=== PATIENT | female | born 1990 | race American Indian/Alaskan Native ===

== ENCOUNTER 2017-06-09 19:16 | Inpatient (IN) | payer OTHER ==
[2017-06-09 21:44] LABS: Basophils % (Auto) 0.7 % (0.0-1.8); Eosinophils % (Auto) 0.4 % (0.0-4.3); Hemoglobin 13.5 gm/dl (10.1-14.3); Mean Corpuscular HGB Conc 32 % (30-34); Mean Corpuscular Hemoglobin 26 pg (28-32); Mean Corpuscular Volume 81 fl (79-97); Platelet Count 315 K/mm3 (140-440); Red Blood Count 5.19 M/mm3 (3.65-5.03); Red Cell Distribution Width 13.9 % (13.2-15.2); White Blood Count 9.9 K/mm3 (4.5-11.0)
[2017-06-09 22:00] LABS: Alanine Aminotransferase 13 units/L (7-56); Albumin 3.9 g/dL (3.9-5); Albumin/Globulin Ratio 1.1 %; Alkaline Phosphatase 57 units/L (35-129); Anion Gap 21 mmol/L; BUN/Creatinine Ratio 16.66; Blood Urea Nitrogen 10 mg/dL (7-17); Calcium 9.1 mg/dL (8.4-10.2); Carbon Dioxide 22 mmol/L (22-30); Chloride 99.8 mmol/L (98-107); Glucose 194 mg/dL (65-100); Lipase 20 units/L (13-60); Sodium 139 mmol/L (137-145); Total Protein 7.4 g/dL (6.3-8.2)
[2017-06-10] MEDS ORDERED: ZOFRAN ODT ONE (00:27)
[2017-06-10] MEDS ORDERED: ZOFRAN IV ONE ×2 (03:20→06:33)
[2017-06-10 03:57] LABS: Bacteria,Urine 4+ /HPF (Negative); Bilirubin,Urine NEG (Negative); Blood,Urine LG (Negative); Ketones,Urine 80 mg/dL (Negative); Leukocyte Esterase,Urine TR (Negative); Mucus,Urine 3+ /HPF; Nitrite,Urine POS (Negative); Urobilinogen,Urine < 2.0 mg/dL (<2.0)
[2017-06-10 03:58] LABS: RBC,Urine > 182.0 /HPF (0.0-6.0)
[2017-06-10] MEDS ORDERED: REGLAN IV ONE (05:44)
[2017-06-10] MEDS ORDERED: REGLAN ONE (05:47)
[2017-06-10] MEDS ORDERED: NACL 0.9% 1000 ML 1,000 ML IV ONE (06:33)
[2017-06-10] MEDS ORDERED: PEPCID IV ONE (06:33)
--- NOTE | 2017-06-10 06:38 | Emergency Department Report ---
HPI - General Chief Complaint: Abdominal Pain Time Seen by Provider: 06/10/17 06:10 - HPI HPI: This is a 26-year-old [place]cu[place] female who presents to the emergency department, dropped off by a friend, with complaint of a 3 day history of nausea, vomiting and some generalized abdominal discomfort. She went to [facility] last night and says she was given Zofran, Pepcid and discharged home. She continues to have nausea and vomiting and has been having some blood in the vomit. She has a past medical history of diabetes on Humulin and Humalog as well as asthma. She does not have a primary care physician. No recent travel or sick contacts at home. The patient was found to have some blood in the urine on urinalysis and says that she may be starting her menstrual cycle. She denies any fever, dysuria, vaginal discharge, chest pain, shortness of breath. ED Past Medical Hx - Past Medical History Previous Medical History?: Yes Hx Diabetes: Yes Hx Asthma: Yes Additional medical history: states was seen at [place] yesterday and told she had a Gastro intestinal bleed. Sent home with prescriptions and follow up with GI. - Social History Smoking Status: Never Smoker - Medications Home Medications: Home Medications Medication Instructions Recorded Confirmed Last Taken Type Insulin Lispro [Humalog 100 0 units SQ AC 06/10/17 06/10/17 06/06/17 History UNITS/ML Kwikpen] ED Review of Systems ROS: Stated complaint: ABD PAIN Other details as noted in HPI Comment: All other systems reviewed and negative Constitutional: denies: chills, fever Eyes: denies: eye pain, eye discharge, vision change ENT: denies: ear pain, throat pain Respiratory: denies: cough, shortness of breath, wheezing Cardiovascular: denies: chest pain, palpitations Gastrointestinal: abdominal pain, nausea, vomiting, hematemesis. denies: melena Genitourinary: denies: urgency, dysuria, discharge Musculoskeletal: denies: back pain, joint swelling, arthralgia Skin: denies: rash, lesions Neurological: denies: headache, weakness, paresthesias Physical Exam - Physical Exam Vital Signs: Vital Signs 06/09/17 06/09/17 06/10/17 20:35 20:46 03:55 Temperature 97.9 F Pulse Rate 80 83 Respiratory 18 20 22 Rate Blood Pressure 141/87 141/87 O2 Sat by Pulse 100 99 98 Oximetry 06/10/17 06/10/17 06/10/17 04:49 05:00 05:15 Temperature Pulse Rate 86 81 90 Respiratory 18 11 L 35 H Rate Blood Pressure 151/85 145/89 O2 Sat by Pulse Oximetry Physical Exam: GENERAL: The patient is well-developed well-nourished. HENT: Normocephalic. Atraumatic. Patient has moist mucous membranes. EYES: Extraocular motions are intact. Pupils equal reactive to light bilaterally. NECK: Supple. Trachea is midline. CHEST/LUNGS: Clear to auscultation. There is no respiratory distress noted. HEART/CARDIOVASCULAR: Regular. There is no tachycardia. There is no gallop rub or murmur. ABDOMEN: Abdomen is soft. Mild generalized tenderness to palpation. No guarding or rebound tenderness. No peritoneal signs. Obese habitus. Patient has normal bowel sounds. There is no abdominal distention. SKIN: Skin is warm and dry. NEURO: The patient is awake, alert, and oriented. The patient is cooperative. The patient has no focal neurologic deficits. The patient has normal speech. MUSCULOSKELETAL: There is no tenderness or deformity. There is no limitation range of motion. There is no evidence of acute injury. ED Course Vital Signs 06/09/17 06/09/17 06/10/17 20:35 20:46 03:55 Temperature 97.9 F Pulse Rate 80 83 Respiratory 18 20 22 Rate Blood Pressure 141/87 141/87 O2 Sat by Pulse 100 99 98 Oximetry 06/10/17 06/10/17 06/10/17 04:49 05:00 05:15 Temperature Pulse Rate 86 81 90 Respiratory 18 11 L 35 H Rate Blood Pressure 151/85 145/89 O2 Sat by Pulse Oximetry ED Medical Decision Making - Lab Data Result diagrams: 06/09/17 21:06 06/09/17 21:06 - Radiology Data Radiology results: image reviewed interpreted by me: Abdominal x-ray shows nonspecific nonobstructive bowel gas. - Medical Decision Making 26-year-old female presents with generalized abdominal discomfort, nausea, vomiting. Labs are mostly unremarkable except for does show 80 ketones in the urine showing dehydration. There is some hyperglycemia but it is reasonable and certainly does not appear consistent with diabetic ketoacidosis. She was seen at another emergency department last night and has been using antiemetics. Since being in [facility] she has received 8 mg of Zofran, 10 mg of Reglan, IV fluid resuscitation and continues to have nausea, vomiting with some coffee-ground emesis. Patient was given a PPI. Vital signs stable. She'll be admitted to the hospital for further evaluation and treatment and was accepted by the hospitalist service. - Differential Diagnosis gastroenteritis, diabetic gastroparesis, ulcer, Halle-Biswas tear Critical Care Time: No Critical care attestation.: If time is entered above; I have spent that time in minutes in the direct care of this critically ill patient, excluding procedure time. ED Disposition Clinical Impression: Coffee ground emesis, Dehydration Intractable nausea and vomiting Qualifiers: Vomiting type: unspecified Qualified Code(s): R11.2 - Nausea with vomiting, unspecified Abdominal pain Qualifiers: Abdominal location: generalized Qualified Code(s): R10.84 - Generalized abdominal pain Disposition: 09 OP ADMIT IP TO THIS HOSP Is pt being admited?: Yes Condition: Stable Time of Disposition: 13:45
--- NOTE | 2017-06-10 07:13 | XRay Report ---
ABDOMEN, 2 views: History: Abdominal pain. There is no evidence of free air beneath the diaphragms. The gas pattern within the abdomen is unremarkable. There is no evidence of bowel dilatation, significant air-fluid levels, or pathologic calcifications. Organ shadows are unremarkable. IMPRESSION: Unremarkable abdomen.
[2017-06-10] MEDS ORDERED: MORPHINE IV ONE (08:18)
[2017-06-10] MEDS ORDERED: PHENERGAN PR PRN (10:08)
[2017-06-10] MEDS ORDERED: TYLENOL PO PRN (10:08)
[2017-06-10] MEDS ORDERED: ZOFRAN IM PRN (10:11)
[2017-06-10] MEDS ORDERED: D50W (25GM) Syringe IV PRN (10:13)
--- NOTE | 2017-06-10 10:19 | History and Physical Report ---
History of Present Illness Date of examination: 06/10/17 Date of admission: 06/10/2017 Chief complaint: Abdominal pain, nausea and vomiting History of present illness: Patient is a 26-year-old Bangladeshi female with past medical history asthma and insulin diabetes mellitus type 1, who presents to the emergency department, with complaint of a 3 day history of nausea, vomiting and sharp, epigastric abdominal pain. The abdominal pain has been gradually worsening over the past 3- 4days. Since yesterday she has had severe nausea and has had multiple episodes of bilious vomiting despite not having taken anything by mouth in over 3 days. Also this morning had a coffee ground emesis once. The pain has not changed or worsened acutely. The pain is located in the epigastric region and mid-abdomen. It does not radiate. The pain is relatively constant throughout the day and night but does vary in severity. She rates the pain as 8/10 at its worst.She describes the pain as a sharp, burning pain.The pain is not alleviated with rest. The pain aggravated with eating or drinking. She does endorse occasional heartburn, decreased appetite, and fatigue. Patient went to [facility] yesterday and was discharged home with [facility] [place]. Patient stated that she took the medication that had been prescribed, but no improvement of the symptoms. Her last bowel movement was over 2 days ago. She denies any fever , dysuria, vaginal discharge, chest pain, shortness of breath. She denies a recent history of fever, jaundice, pruritis, diarrhea, hemoptysis, melena, or hematochezia. She denies a known history of hemorrhoids, diverticulitis, peptic ulcer disease, gastritis, acid reflux, gall bladder disease or cholelithiasis. Patient reported she has the similar symptoms 3-4month ago but did not seek medical attention.She denies a history of smoking or alcohol consumption. Past History Past Medical History: diabetes (type 1), other (Asthma) Past Surgical History: No surgical history Social history: denies: smoking, alcohol abuse Family history: diabetes, hypertension Medications and Allergies Allergies Allergy/AdvReac Type Severity Reaction Status Date / Time Sulfa (Sulfonamide Allergy Swelling Verified 06/09/17 20:42 Antibiotics) sulfamethoxazole Allergy Swelling Verified 06/09/17 20:42 [From Bactrim] trimethoprim [From Bactrim] Allergy Swelling Verified 06/09/17 20:42 Home Medications Medication Instructions Recorded Confirmed Last Taken Type Insulin Lispro [Humalog 100 0 units SQ AC 06/10/17 06/10/17 06/06/17 History UNITS/ML Kwikpen] Active Meds: Active Medications Acetaminophen (Tylenol) 650 mg PO Q4H PRN PRN Reason: Pain MILD(1-3)/Fever >100.5/PATEL Bisacodyl (Dulcolax) 10 mg GA QDAY PRN PRN Reason: Constipation unrelieved by MOM Dextrose (D50w (25gm) Syringe) 50 ml IV PRN PRN PRN Reason: Hypoglycemia Enoxaparin Sodium (Lovenox) 40 mg SUB-Q QDAY HERI Sodium Chloride (Nacl 0.9% 1000 Ml) 1,000 mls @ 75 mls/hr IV DIRECT HERI Insulin Aspart (Novolog) 0 units SUB-Q AC HERI PRN Reason: Protocol Insulin Aspart (Novolog) 0 units SUB-Q QHS HERI PRN Reason: Protocol Morphine Sulfate (Morphine) 2 mg IV Q4H PRN PRN Reason: Pain, Moderate (4-6) Ondansetron HCl (Zofran) 4 mg IM Q4H PRN PRN Reason: Nausea And Vomiting Pantoprazole Sodium (Protonix) 40 mg IV BID HERI Promethazine HCl (Phenergan) 25 mg GA Q6H PRN PRN Reason: N/V IF NPO AND NO IV ACCESS Review of Systems Constitutional: no weight loss, no weight gain, no fever, no chills, no sweats Ears, nose, mouth and throat: no ear pain, no ear discharge, no tinnitis, no decreased hearing, no nose pain, no nasal congestion Breasts: no change in shape, no swelling, no mass Cardiovascular: no palpitations, no rapid/irregular heart beat, no edema, no syncope, no lightheadedness Respiratory: no excessive sputum, no hemoptysis, no shortness of breath Gastrointestinal: abdominal pain, nausea, vomiting, hematemesis, heartburn, indigestion, belching Genitourinary Female: no dyspareunia, no dysmenorrhea, no pelvic pain, no flank pain, no menorrhagia, no dysuria, no urinary frequency, no urgency, no stress incontinence Menstruation: currently menstrual, no premenarcheal Rectal: no pain, no incontinence Musculoskeletal: no neck stiffness, no neck pain, no shooting arm pain, no arm numbness/tingling Integumentary: no rash, no pruritis, no redness, no sores, no wounds Neurological: no transient paralysis, no paralysis, no weakness, no parathesias , no numbness, no tingling Psychiatric: no memory loss, no change in sleep habits, no sleep disturbances, no insomnia, no hypersomnia, no change in appetite Endocrine: no heat intolerance, no polyphagia, no excessive thirst, no polydipsia, no polyuria Hematologic/Lymphatic: no easy bruising, no easy bleeding Allergic/Immunologic: no urticaria, no allergic rhinitis Exam - Constitutional Vitals: Temp Pulse Resp BP Pulse Ox 97.9 F 80 16 134/76 98 06/09/17 20:46 06/10/17 05:46 06/10/17 08:32 06/10/17 08:45 06/10/17 03:55 General appearance: Present: no acute distress - EENT Eyes: Present: PERRL ENT: hearing intact, clear oral mucosa, dentition normal - Neck Neck: Present: supple, normal ROM - Respiratory Respiratory effort: normal Respiratory: bilateral: CTA - Cardiovascular Rhythm: regular Heart Sounds: Present: S1 & S2 - Extremities Extremities: no ischemia Peripheral Pulses: within normal limits - Abdominal General gastrointestinal: Present: soft Female genitourinary: Present: deferred - Rectal Rectal Exam: deferred - Integumentary Integumentary: Present: clear, warm, dry - Musculoskeletal Musculoskeletal: strength equal bilaterally - Psychiatric Psychiatric: appropriate mood/affect - Neurologic Neurologic: CNII-XII intact - Allied Health Allied health notes reviewed: nursing Results - Labs CBC & Chem 7: 06/09/17 21:06 06/09/17 21:06 Labs: Laboratory Last Values WBC 9.9 K/mm3 (4.5-11.0) 06/09/17 21:06 RBC 5.19 M/mm3 (3.65-5.03) H 06/09/17 21:06 Hgb 13.5 gm/dl (10.1-14.3) 06/09/17 21:06 Hct 42.0 % (30.3-42.9) 06/09/17 21:06 MCV 81 fl (79-97) 06/09/17 21:06 MCH 26 pg (28-32) L 06/09/17 21:06 MCHC 32 % (30-34) 06/09/17 21:06 RDW 13.9 % (13.2-15.2) 06/09/17 21:06 Plt Count 315 K/mm3 (140-440) 06/09/17 21:06 Lymph % (Auto) 20.3 % (13.4-35.0) 06/09/17 21:06 [place] % (Auto) 6.5 % (0.0-7.3) 06/09/17 21:06 Eos % (Auto) 0.4 % (0.0-4.3) 06/09/17 21:06 Baso % (Auto) 0.7 % (0.0-1.8) 06/09/17 21:06 Lymph # 2.0 K/mm3 (1.2-5.4) 06/09/17 21:06 [place] # 0.6 K/mm3 (0.0-0.8) 06/09/17 21:06 Eos # 0.0 K/mm3 (0.0-0.4) 06/09/17 21:06 Baso # 0.1 K/mm3 (0.0-0.1) 06/09/17 21:06 Seg Neutrophils % 72.1 % (40.0-70.0) H 06/09/17 21:06 Seg Neutrophils # 7.1 K/mm3 (1.8-7.7) 06/09/17 21:06 Sodium 139 mmol/L (137-145) 06/09/17 21:06 Potassium 4.0 mmol/L (3.6-5.0) 06/09/17 21:06 Chloride 99.8 mmol/L (98-107) 06/09/17 21:06 Carbon Dioxide 22 mmol/L (22-30) 06/09/17 21:06 Anion Gap 21 mmol/L 06/09/17 21:06 BUN 10 mg/dL (7-17) 06/09/17 21:06 Creatinine 0.6 mg/dL (0.7-1.2) L 06/09/17 21:06 Estimated GFR > 60 ml/min 06/09/17 21:06 BUN/Creatinine Ratio 16.66 % 06/09/17 21:06 Glucose 194 mg/dL (65-100) H 06/09/17 21:06 Calcium 9.1 mg/dL (8.4-10.2) 06/09/17 21:06 Total Bilirubin 0.50 mg/dL (0.1-1.2) 06/09/17 21:06 AST 12 units/L (5-40) 06/09/17 21:06 ALT 13 units/L (7-56) 06/09/17 21:06 Alkaline Phosphatase 57 units/L (35-129) 06/09/17 21:06 Total Protein 7.4 g/dL (6.3-8.2) 06/09/17 21:06 Albumin 3.9 g/dL (3.9-5) 06/09/17 21:06 Albumin/Globulin Ratio 1.1 % 06/09/17 21:06 Lipase 20 units/L (13-60) 06/09/17 21:06 Urine Color Yellow (Yellow) 06/09/17 03:29 Urine Turbidity Clear (Clear) 06/09/17 03:29 Urine pH 5.0 (5.0-7.0) 06/09/17 03:29 Ur Specific [place] 1.035 (1.003-1.030) H 06/09/17 03:29 Urine Protein 100 mg/dl mg/dL (Negative) 06/09/17 03:29 Urine Glucose (UA) >=500 mg/dL (Negative) 06/09/17 03:29 Urine Ketones 80 mg/dL (Negative) 06/09/17 03:29 Urine Blood Lg (Negative) 06/09/17 03:29 Urine Nitrite Pos (Negative) 06/09/17 03:29 Urine Bilirubin Neg (Negative) 06/09/17 03:29 Urine Urobilinogen < 2.0 mg/dL (<2.0) 06/09/17 03:29 Ur Leukocyte Esterase Tr (Negative) 06/09/17 03:29 Urine WBC (Auto) 7.0 /HPF (0.0-6.0) H 06/09/17 03:29 Urine RBC (Auto) > 182.0 /HPF (0.0-6.0) 06/09/17 03:29 U Epithel Cells (Auto) 6.0 /HPF (0-13.0) 06/09/17 03:29 Urine Bacteria (Auto) 4+ /HPF (Negative) 06/09/17 03:29 Urine Mucus 3+ /HPF 06/09/17 03:29 - Imaging and Cardiology Abdominal x-ray: image reviewed (unremarkable ) Assessment and Plan Assessment and plan: Patient is a 26-year-old Bangladeshi female with past medical history asthma and insulin diabetes mellitus type 1, who presents to the emergency department, with complaint of a 3 day history of nausea, vomiting and sharp, epigastric abdominal pain. The abdominal pain has been gradually worsening over the past 3- 4days. Intractable nausea and vomiting Most likely due to diabetic gastroparesis Nothing by mouth Started on IV fluid hydration NM Gastric emptying in the AM Antiemetics Pain medications Supportive care Coffee ground emesis Most likely due to a Halle-Biswas tear from forceful vomiting or retching. Started on PPI, GI consulted Closely monitor H& Hypertension Started on Norvasc IV hydralazine for SBP >160 Closely monitor blood pressure Insulin-dependent type 1 diabetes Accu-Chek meals and at bedtime Resume Lispro pen Sliding scale insulin/novlong We will obtain hemoglobin A1c Leukouria Highly doubt UTI as patient is asymptomatic, We will obtain urine culture Asthma Stable at this time Nebs as necessary DVT prophylaxis Lovenox Advance Directives: Yes VTE prophylaxis?: Chemical Contraindication Mechanical VTE Prophylaxis: Contraindicated Plan of care discussed with patient/family: Yes
[2017-06-10] MEDS: NACL 0.9% 1000 ML 1,000 ML IV SCH (10:44)
[2017-06-10] MEDS ORDERED: NACL 0.9% 1000 ML 1,000 ML ONE (10:52)
[2017-06-10] MEDS ORDERED: DULCOLAX PR PRN (11:00)
--- NOTE | 2017-06-10 11:09 | Event Note ---
26-year-old with past medical history of mild intermittent asthma, type 1 diabetes, insulin-dependent. We'll presents with abdominal pain and intractable nausea and vomiting 3 days. On one episode of coffee-ground emesis. As per the patient she had a similar episode about 4 months ago. * Intractable nausea and vomiting, most likely due to diabetic gastroparesis; IV fluids, antiemetics, keep nothing by mouth, obtain nuclear medicine gastric empty study in the morning * Insulin-dependent type 1 diabetes: Sliding scale insulin, and resume home insulin regimen, obtain hemoglobin A1c * Coffee ground emesis; GIB, likely a Halle-Biswas tear from protracted vomiting, started on PPI, GI consult, monitor hemoglobin * Leukouria: Highly doubt UTI as patient is asymptomatic, I'll obtain urine culture * Mild intermittent asthma; not in exacerbation, nebs as needed * DVT prophylaxis with Lovenox
--- NOTE | 2017-06-10 11:39 | Gastroenterology Consultation ---
Addendum entered and electronically signed by GLYNN FULLER NP 06/10/17 12: 08: will order an abd U/S Original Note: History of Present Illness - Reason for Consult Consult date: 06/10/17 abd pain, coffee-ground emesis Requesting physician: ANDRY RYDER - History of Present Illness Patient is a 26 y/o female with a hx of DM (type 1) and asthma who presented to ER with c/o epigastric pain, N/V, and coffee-ground emesis. She reports being evaluated at [facility] yesterday for same complaints and was given zofran and pepcid and d/c home. This morning pt resting in bed. No acute distress noted. C/o epigastric pain that is non-radiating with no alleviating or aggravating factors and N/V x 2 days. She reports multiple episodes of vomiting yesterday with dark brown/green emesis. Emesis became yellow in color with later episodes of vomiting. Last vomiting episode this am with clear emesis. She states she was also evaluated at [facility] in 01/29 for similar symptoms and underwent an EGD. Results unknown but she denies a hx of PUD. No hx of liver/gallbaldder disease. No NSAID use. Denies fever, wt loss, hematemesis, melena, diarrhea, constipation, or hematochezia. Past History Past Medical History: diabetes (type 1), other (Asthma) Past Surgical History: No surgical history Social history: denies: smoking, alcohol abuse Family history: diabetes, hypertension Medications and Allergies Allergies Allergy/AdvReac Type Severity Reaction Status Date / Time Sulfa (Sulfonamide Allergy Swelling Verified 06/09/17 20:42 Antibiotics) sulfamethoxazole Allergy Swelling Verified 06/09/17 20:42 [From Bactrim] trimethoprim [From Bactrim] Allergy Swelling Verified 06/09/17 20:42 Home Medications Medication Instructions Recorded Confirmed Last Taken Type Insulin Lispro [Humalog 100 0 units SQ AC 06/10/17 06/10/17 06/06/17 History UNITS/ML Kwikpen] Active Meds: Active Medications Acetaminophen (Tylenol) 650 mg PO Q4H PRN PRN Reason: Pain MILD(1-3)/Fever >100.5/PATEL Amlodipine Besylate (Norvasc) 5 mg PO QDAY HERI Bisacodyl (Dulcolax) 10 mg MN QDAY PRN PRN Reason: Constipation unrelieved by MOM Dextrose (D50w (25gm) Syringe) 50 ml IV PRN PRN PRN Reason: Hypoglycemia Enoxaparin Sodium (Lovenox) 40 mg SUB-Q QDAY HERI Famotidine (Pepcid) 20 mg IV BID HERI Sodium Chloride (Nacl 0.9% 1000 Ml) 1,000 mls @ 75 mls/hr IV DIRECT HERI Last Admin: 06/10/17 10:44 Dose: 75 mls/hr Insulin Aspart (Novolog) 0 units SUB-Q AC HERI PRN Reason: Protocol Insulin Aspart (Novolog) 0 units SUB-Q QHS HERI PRN Reason: Protocol Morphine Sulfate (Morphine) 2 mg IV Q4H PRN PRN Reason: Pain, Moderate (4-6) Ondansetron HCl (Zofran) 4 mg IM Q4H PRN PRN Reason: Nausea And Vomiting Promethazine HCl (Phenergan) 25 mg MN Q6H PRN PRN Reason: N/V IF NPO AND NO IV ACCESS Review of Systems - Review of Systems All systems: negative Gastrointestinal: abdominal pain, nausea, vomiting, coffee ground emesis Exam - Constitutional Vital Signs: Temp Pulse Resp BP Pulse Ox 97.9 F 80 16 157/84 98 06/09/17 20:46 06/10/17 05:46 06/10/17 08:32 06/10/17 10:15 06/10/17 03:55 General appearance: no acute distress, obese - EENT Eyes: PERRL, EOM intact ENT: hearing intact - Neck Neck: supple, normal ROM - Respiratory Respiratory: bilateral: CTA - Cardiovascular Rhythm: regular Heart Sounds: Present: S1 & S2 Extremities: No edema - Gastrointestinal General gastrointestinal: Present: soft, tender (epigastric), non-distended, normal bowel sounds - Integumentary Integumentary: Present: warm, dry - Neurologic Neurological: alert and oriented x3 - Labs CBC & Chem 7: 06/09/17 21:06 06/09/17 21:06 Lab Results: Laboratory Results - last 24 hr 06/10/17 10:15 Hemoglobin A1c 8.5 H Assessment and Plan 1.abd pain-epigastric 2.N/V 3.coffee ground emesis 4.DM (type 1) -HGB/HCT -13.5/42.0 -continue to monitor H/H and transfuse as needed -no signs of active bleeding this am -hemodynamically stable -last EGD at [facility]- 01/29- unknown results, however pt denies hx of PUD -etiology most likely due to possible gastroparesis -gastric emptying study pending for today -no recommendations for an endoscopic evaluation at this time unless overt bleeding develops -will start on PPI -continue supportive care -will follow
[2017-06-10] MEDS ORDERED: PROTONIX IV SCH ×3 (12:00→22:00)
[2017-06-10] MEDS ORDERED: PROVENTIL IH PRN (12:04)
[2017-06-10] MEDS: MORPHINE IV PRN ×2 (12:15→20:22)
[2017-06-10] MEDS ORDERED: Fluarix Quad 2017-2018(36 MOS+) IM ONE (12:22)
[2017-06-10] MEDS: NORVASC PO SCH (13:19)
[2017-06-10] MEDS: NOVOLOG SUB-Q SCH ×3 (13:19→23:10)
[2017-06-10] MEDS: ZOFRAN IV PRN ×2 (14:12→19:09)
--- NOTE | 2017-06-10 14:15 | Ultrasound Report ---
ULTRASOUND ABDOMEN COMPLETE: Technique: Transabdominal ultrasound with color Doppler interrogation. History: Abdominal pain and. Findings: The liver is normal size, contour and echotexture. The gallbladder dimensions are within normal limits without intraluminal stone, wall thickening, or pericholecystic fluid. The CBD is normal caliber. The visualized portions of the pancreas including the head and proximal body are within normal limits. The kidneys demonstrate no hydronephrosis or mass. Cortical thickness and echogenicity are within normal limits bilaterally. The spleen and aorta are within normal limits. No aneurysmal dilatation is noted. No ascites. The bladder is obscured. IMPRESSION: Unremarkable abdominal ultrasound.
[2017-06-10] MEDS: PROTONIX PO SCH (19:13)
[2017-06-10] MEDS: REGLAN IV PRN (20:23)
[2017-06-10] MEDS ORDERED: PEPCID IV SCH (22:00)
[2017-06-11] MEDS: NACL 0.9% 1000 ML 1,000 ML IV SCH ×2 (03:40→23:19)
[2017-06-11 04:56] LABS: Hematocrit 38.1 % (30.3-42.9); Hemoglobin 12.7 gm/dl (10.1-14.3); Mean Corpuscular HGB Conc 33 % (30-34); Mean Corpuscular Hemoglobin 27 pg (28-32); Mean Corpuscular Volume 80 fl (79-97); Platelet Count 272 K/mm3 (140-440); Red Blood Count 4.77 M/mm3 (3.65-5.03); White Blood Count 11.7 K/mm3 (4.5-11.0)
[2017-06-11 05:13] LABS: Anion Gap 17 mmol/L; Blood Urea Nitrogen 9 mg/dL (7-17); Calcium 8.3 mg/dL (8.4-10.2); Carbon Dioxide 25 mmol/L (22-30); Chloride 99.6 mmol/L (98-107); Glucose 148 mg/dL (65-100); Potassium 3.8 mmol/L (3.6-5.0); Sodium 138 mmol/L (137-145)
[2017-06-11 05:26] LABS: Cholesterol 133 mg/dL (50-199); HDL Cholesterol 51 mg/dL (40-59); LDL Cholesterol,Direct 69 mg/dL (50-130); Triglycerides 68 mg/dL (2-149)
[2017-06-11 05:45] LABS: Basophils % (Manual) 0 % (0.0-1.8); Blastocytes % (Manual) 0 %; Eosinophils % (Manual) 0 % (0.0-4.3)
[2017-06-11 05:47] LABS: Diff Status Complete; Platelet Estimate Consistent w Auto
[2017-06-11] MEDS: ZOFRAN IV PRN ×3 (06:59→22:08)
[2017-06-11] MEDS: NOVOLOG SUB-Q SCH ×4 (08:01→22:07)
[2017-06-11] MEDS: MORPHINE IV PRN ×3 (08:13→22:07)
[2017-06-11] MEDS: REGLAN IV PRN ×2 (08:13→17:19)
--- NOTE | 2017-06-11 11:24 | Progress Note ---
Assessment and Plan Assessment and plan: 26-year-old with past medical history of mild intermittent asthma, type 1 diabetes, insulin-dependent. We'll presents with abdominal pain and intractable nausea and vomiting 3 days. On one episode of coffee-ground emesis. As per the patient she had a similar episode about 4 months ago. * Intractable nausea and vomiting, most likely due to acute flare of diabetic gastroparesis; IV fluids, antiemetics, keep nothing by mouth, unable to do nuclear medicine gastric empty study as she still vomiting. * Insulin-dependent type 1 diabetes, uncontrolled: Sliding scale insulin, and resume home insulin regimen, hemoglobin A1c is 8.5, lipids at goal * Coffee ground emesis; GIB, likely a Halle-Biswas tear from protracted vomiting, started on PPI, GI consult appreciated, monitor hemoglobin * Leukouria: Highly doubt UTI as patient is asymptomatic, follow-up urine culture, negativ so far * Mild intermittent asthma; not in exacerbation, nebs as needed * DVT prophylaxis with Lovenox * HTN: continue BP meds, continue to optimize meds History Interval history: c/o of intractable nausea and vomiting associated abdominal pain. Unable to tolerate by mouth, even after she drinks water she vomited up it up, - Hospitalist Physical - Physical exam Narrative exam: General.: Appears ill, no distress, nontoxic HEENT: Moist mucous membranes, extraocular muscles intact, no lymphadenopathy Neck: supple Cardiac: S1-S2 heard Lungs: clear to auscultation bilaterally Abdomen: soft , epigastric tenderness, nondistended, bowel sounds positive Extremities: no edema clubbing or cyanosis Skin: no rash or lesions Neurologic: no gross focal deficits Psych: appropriate behavior, appropriate mood, corporative, judgment intact - Constitutional Vitals: Temp Pulse Resp BP Pulse Ox 98.7 F 75 16 113/63 99 06/11/17 05:18 06/11/17 05:18 06/11/17 05:18 06/11/17 05:18 06/11/17 05:18 General appearance: Present: mild distress Results - Labs CBC & Chem 7: 06/11/17 04:01 06/11/17 04:01 Labs: Laboratory Last Values WBC 11.7 K/mm3 (4.5-11.0) H 06/11/17 04:01 RBC 4.77 M/mm3 (3.65-5.03) 06/11/17 04:01 Hgb 12.7 gm/dl (10.1-14.3) 06/11/17 04:01 Hct 38.1 % (30.3-42.9) 06/11/17 04:01 MCV 80 fl (79-97) 06/11/17 04:01 MCH 27 pg (28-32) L 06/11/17 04:01 MCHC 33 % (30-34) 06/11/17 04:01 RDW 14.0 % (13.2-15.2) 06/11/17 04:01 Plt Count 272 K/mm3 (140-440) 06/11/17 04:01 Lymph % (Auto) 20.3 % (13.4-35.0) 06/09/17 21:06 [place] % (Auto) 6.5 % (0.0-7.3) 06/09/17 21:06 Eos % (Auto) 0.4 % (0.0-4.3) 06/09/17 21:06 Baso % (Auto) 0.7 % (0.0-1.8) 06/09/17 21:06 Lymph # Civil Geotechnical Engineer 06/11/17 04:01 [place] # 0.6 K/mm3 (0.0-0.8) 06/09/17 21:06 Eos # 0.0 K/mm3 (0.0-0.4) 06/09/17 21:06 Baso # 0.1 K/mm3 (0.0-0.1) 06/09/17 21:06 Add Manual Diff Complete 06/11/17 04:01 Total Counted 100 06/11/17 04:01 Seg Neutrophils % 72.1 % (40.0-70.0) H 06/09/17 21:06 Seg Neuts % (Manual) 45.0 % (40.0-70.0) 06/11/17 04:01 Band Neutrophils % 0 % 06/11/17 04:01 Lymphocytes % (Manual) 46.0 % (13.4-35.0) H 06/11/17 04:01 Reactive Lymphs % (Man) 1.0 % 06/11/17 04:01 Monocytes % (Manual) 8.0 % (0.0-7.3) H 06/11/17 04:01 Eosinophils % (Manual) 0 % (0.0-4.3) 06/11/17 04:01 Basophils % (Manual) 0 % (0.0-1.8) 06/11/17 04:01 Metamyelocytes % 0 % 06/11/17 04:01 Myelocytes % 0 % 06/11/17 04:01 Promyelocytes % 0 % 06/11/17 04:01 Blast Cells % 0 % 06/11/17 04:01 Nucleated RBC % Not Reportable 06/11/17 04:01 Seg Neutrophils # 7.1 K/mm3 (1.8-7.7) 06/09/17 21:06 Seg Neutrophils # Man 5.3 K/mm3 (1.8-7.7) 06/11/17 04:01 Band Neutrophils # 0.0 K/mm3 06/11/17 04:01 Lymphocytes # (Manual) 5.4 K/mm3 (1.2-5.4) 06/11/17 04:01 Abs React Lymphs (Man) 0.1 K/mm3 06/11/17 04:01 Monocytes # (Manual) 0.9 K/mm3 (0.0-0.8) H 06/11/17 04:01 Eosinophils # (Manual) 0.0 K/mm3 (0.0-0.4) 06/11/17 04:01 Basophils # (Manual) 0.0 K/mm3 (0.0-0.1) 06/11/17 04:01 Metamyelocytes # 0.0 K/mm3 06/11/17 04:01 Myelocytes # 0.0 K/mm3 06/11/17 04:01 Promyelocytes # 0.0 K/mm3 06/11/17 04:01 Blast Cells # 0.0 K/mm3 06/11/17 04:01 WBC Morphology Not Reportable 06/11/17 04:01 Hypersegmented Neuts Not Reportable 06/11/17 04:01 Hyposegmented Neuts Not Reportable 06/11/17 04:01 Hypogranular Neuts Not Reportable 06/11/17 04:01 Smudge Cells Not Reportable 06/11/17 04:01 Toxic Granulation Not Reportable 06/11/17 04:01 Toxic Vacuolation Not Reportable 06/11/17 04:01 Dohle Bodies Not Reportable 06/11/17 04:01 Pelger-Huet Anomaly Not Reportable 06/11/17 04:01 Al Rods Not Reportable 06/11/17 04:01 Platelet Estimate Consistent w auto 06/11/17 04:01 Clumped Platelets Not Reportable 06/11/17 04:01 Plt Clumps, EDTA Not Reportable 06/11/17 04:01 Large Platelets Not Reportable 06/11/17 04:01 Giant Platelets Not Reportable 06/11/17 04:01 Platelet Satelliting Not Reportable 06/11/17 04:01 Plt Morphology Comment Not Reportable 06/11/17 04:01 RBC Morphology Not Reportable 06/11/17 04:01 Dimorphic RBCs Not Reportable 06/11/17 04:01 Polychromasia Not Reportable 06/11/17 04:01 Hypochromasia Not Reportable 06/11/17 04:01 Poikilocytosis Not Reportable 06/11/17 04:01 Anisocytosis Not Reportable 06/11/17 04:01 Microcytosis Not Reportable 06/11/17 04:01 Macrocytosis Not Reportable 06/11/17 04:01 Spherocytes Not Reportable 06/11/17 04:01 Pappenheimer Bodies Not Reportable 06/11/17 04:01 Sickle Cells Not Reportable 06/11/17 04:01 Target Cells Not Reportable 06/11/17 04:01 Tear Drop Cells Not Reportable 06/11/17 04:01 Ovalocytes Not Reportable 06/11/17 04:01 Helmet Cells Not Reportable 06/11/17 04:01 [place] Bodies Not Reportable 06/11/17 04:01 [place] Rings Not Reportable 06/11/17 04:01 [place] Cells Not Reportable 06/11/17 04:01 Bite Cells Not Reportable 06/11/17 04:01 Crenated Cell Not Reportable 06/11/17 04:01 Elliptocytes Not Reportable 06/11/17 04:01 Acanthocytes (Spur) Not Reportable 06/11/17 04:01 Rouleaux Not Reportable 06/11/17 04:01 Hemoglobin C Crystals Not Reportable 06/11/17 04:01 Schistocytes Not Reportable 06/11/17 04:01 Malaria parasites Not Reportable 06/11/17 04:01 Kyle Bodies Not Reportable 06/11/17 04:01 Hem Pathologist Commnt No 06/11/17 04:01 Sodium 138 mmol/L (137-145) 06/11/17 04:01 Potassium 3.8 mmol/L (3.6-5.0) 06/11/17 04:01 Chloride 99.6 mmol/L (98-107) 06/11/17 04:01 Carbon Dioxide 25 mmol/L (22-30) 06/11/17 04:01 Anion Gap 17 mmol/L 06/11/17 04:01 BUN 9 mg/dL (7-17) 06/11/17 04:01 Creatinine 0.6 mg/dL (0.7-1.2) L 06/11/17 04:01 Estimated GFR > 60 ml/min 06/11/17 04:01 BUN/Creatinine Ratio 15.00 % 06/11/17 04:01 Glucose 148 mg/dL (65-100) H 06/11/17 04:01 POC Glucose 213 (70-105) H 06/11/17 11:10 Hemoglobin A1c 8.5 % (4-6) H 06/10/17 10:15 Calcium 8.3 mg/dL (8.4-10.2) L 06/11/17 04:01 Total Bilirubin 0.50 mg/dL (0.1-1.2) 06/09/17 21:06 AST 12 units/L (5-40) 06/09/17 21:06 ALT 13 units/L (7-56) 06/09/17 21:06 Alkaline Phosphatase 57 units/L (35-129) 06/09/17 21:06 Total Protein 7.4 g/dL (6.3-8.2) 06/09/17 21:06 Albumin 3.9 g/dL (3.9-5) 06/09/17 21:06 Albumin/Globulin Ratio 1.1 % 06/09/17 21:06 Triglycerides 68 mg/dL (2-149) 06/11/17 04:01 Cholesterol 133 mg/dL (50-199) 06/11/17 04:01 LDL Cholesterol Direct 69 mg/dL (50-130) 06/11/17 04:01 HDL Cholesterol 51 mg/dL (40-59) 06/11/17 04:01 Cholesterol/HDL Ratio 2.60 % 06/11/17 04:01 Lipase 20 units/L (13-60) 06/09/17 21:06 Urine Color Yellow (Yellow) 06/09/17 03: Urine Turbidity Clear (Clear) 06/09/17 03:29 Urine pH 5.0 (5.0-7.0) 06/09/17 03:29 Ur Specific [place] 1.035 (1.003-1.030) H 06/09/17 03:29 Urine Protein 100 mg/dl mg/dL (Negative) 06/09/17 03:29 Urine Glucose (UA) >=500 mg/dL (Negative) 06/09/17 03: Urine Ketones 80 mg/dL (Negative) 06/09/17 03: Urine Blood Lg (Negative) 06/09/17 03:29 Urine Nitrite Pos (Negative) 06/09/17 03:29 Urine Bilirubin Neg (Negative) 06/09/17 03: Urine Urobilinogen < 2.0 mg/dL (<2.0) 06/09/17 03:29 Ur Leukocyte Esterase Tr (Negative) 06/09/17 03:29 Urine WBC (Auto) 7.0 /HPF (0.0-6.0) H 06/09/17 03:29 Urine RBC (Auto) > 182.0 /HPF (0.0-6.0) 06/09/17 03:29 U Epithel Cells (Auto) 6.0 /HPF (0-13.0) 06/09/17 03:29 Urine Bacteria (Auto) 4+ /HPF (Negative) 06/09/17 03:29 Urine Mucus 3+ /HPF 06/09/17 03:29
[2017-06-11] MEDS: LOVENOX SUB-Q SCH (13:07)
[2017-06-11] MEDS: PROTONIX PO SCH (13:11)
[2017-06-11] MEDS: NORVASC PO SCH (13:11)
--- NOTE | 2017-06-11 16:16 | Gastroenterology Progress Note ---
Assessment and Plan - Patient Problems (1) Gastroparesis Current Visit: Yes Status: Acute (2) Intractable nausea and vomiting Current Visit: Yes Status: Acute Qualifiers: Vomiting type: unspecified Qualified Code(s): R11.2 - Nausea with vomiting , unspecified Plan to address problem: Gastroparesis is likely. The u/s of the RUQ is normal. Awaiting gastric emptying study, postponed until tomorrow in light of vomiting today. Subjective Date of service: 06/11/17 Principal diagnosis: gastroparesis Interval history: The patient reports vomiting a few times today and has persistent nausea. Objective - Constitutional Vitals: Temp Pulse Resp BP Pulse Ox 98.8 F 79 18 129/68 99 06/11/17 15:02 06/11/17 15:02 06/11/17 15:02 06/11/17 15:02 06/11/17 15:02 General appearance: mild distress, obese - Neck Neck: supple, normal ROM - Respiratory Respiratory effort: normal Respiratory: bilateral: CTA - Cardiovascular Rhythm: regular - Gastrointestinal General gastrointestinal: Present: soft, non-tender, non-distended, normal bowel sounds - Neurologic Neurological: alert and oriented x3 - Labs CBC & Chem 7: 06/11/17 04:01 06/11/17 04:01 Labs: Laboratory Results - last 24 hr 06/10/17 06/10/17 06/11/17 16:14 21:30 04:01 WBC 11.7 H RBC 4.77 Hgb 12.7 Hct 38.1 MCV 80 MCH 27 L MCHC 33 RDW 14.0 Plt Count 272 Lymph # Sponsorship Coordinator Add Manual Diff Complete Total Counted 100 Seg Neuts % (Manual) 45.0 Band Neutrophils % 0 Lymphocytes % (Manual) 46.0 H Reactive Lymphs % (Man) 1.0 Monocytes % (Manual) 8.0 H Eosinophils % (Manual) 0 Basophils % (Manual) 0 Metamyelocytes % 0 Myelocytes % 0 Promyelocytes % 0 Blast Cells % 0 Nucleated RBC % Not Reportable Seg Neutrophils # Man 5.3 Band Neutrophils # 0.0 Lymphocytes # (Manual) 5.4 Abs React Lymphs (Man) 0.1 Monocytes # (Manual) 0.9 H Eosinophils # (Manual) 0.0 Basophils # (Manual) 0.0 Metamyelocytes # 0.0 Myelocytes # 0.0 Promyelocytes # 0.0 Blast Cells # 0.0 WBC Morphology Not Reportable Hypersegmented Neuts Not Reportable Hyposegmented Neuts Not Reportable Hypogranular Neuts Not Reportable Smudge Cells Not Reportable Toxic Granulation Not Reportable Toxic Vacuolation Not Reportable Dohle Bodies Not Reportable Pelger-Huet Anomaly Not Reportable Al Rods Not Reportable Platelet Estimate Consistent w auto Clumped Platelets Not Reportable Plt Clumps, EDTA Not Reportable Large Platelets Not Reportable Giant Platelets Not Reportable Platelet Satelliting Not Reportable Plt Morphology Comment Not Reportable RBC Morphology Not Reportable Dimorphic RBCs Not Reportable Polychromasia Not Reportable Hypochromasia Not Reportable Poikilocytosis Not Reportable Anisocytosis Not Reportable Microcytosis Not Reportable Macrocytosis Not Reportable Spherocytes Not Reportable Pappenheimer Bodies Not Reportable Sickle Cells Not Reportable Target Cells Not Reportable Tear Drop Cells Not Reportable Ovalocytes Not Reportable Helmet Cells Not Reportable [place] Bodies Not Reportable [place] Rings Not Reportable [place] Cells Not Reportable Bite Cells Not Reportable Crenated Cell Not Reportable Elliptocytes Not Reportable Acanthocytes (Spur) Not Reportable Rouleaux Not Reportable Hemoglobin C Crystals Not Reportable Schistocytes Not Reportable Malaria parasites Not Reportable Kyle Bodies Not Reportable Hem Pathologist Commnt No Sodium Potassium Chloride Carbon Dioxide Anion Gap BUN Creatinine Estimated GFR BUN/Creatinine Ratio Glucose POC Glucose 197 H 185 H Calcium Triglycerides Cholesterol LDL Cholesterol Direct HDL Cholesterol Cholesterol/HDL Ratio 06/11/17 06/11/17 06/11/17 04:01 05:19 11:10 WBC RBC Hgb Hct MCV MCH MCHC RDW Plt Count Lymph # Add Manual Diff Total Counted Seg Neuts % (Manual) Band Neutrophils % Lymphocytes % (Manual) Reactive Lymphs % (Man) Monocytes % (Manual) Eosinophils % (Manual) Basophils % (Manual) Metamyelocytes % Myelocytes % Promyelocytes % Blast Cells % Nucleated RBC % Seg Neutrophils # Man Band Neutrophils # Lymphocytes # (Manual) Abs React Lymphs (Man) Monocytes # (Manual) Eosinophils # (Manual) Basophils # (Manual) Metamyelocytes # Myelocytes # Promyelocytes # Blast Cells # WBC Morphology Hypersegmented Neuts Hyposegmented Neuts Hypogranular Neuts Smudge Cells Toxic Granulation Toxic Vacuolation Dohle Bodies Pelger-Huet Anomaly Al Rods Platelet Estimate Clumped Platelets Plt Clumps, EDTA Large Platelets Giant Platelets Platelet Satelliting Plt Morphology Comment RBC Morphology Dimorphic RBCs Polychromasia Hypochromasia Poikilocytosis Anisocytosis Microcytosis Macrocytosis Spherocytes Pappenheimer Bodies Sickle Cells Target Cells Tear Drop Cells Ovalocytes Helmet Cells [place] Bodies [place] Rings [place] Cells Bite Cells Crenated Cell Elliptocytes Acanthocytes (Spur) Rouleaux Hemoglobin C Crystals Schistocytes Malaria parasites Kyle Bodies Hem Pathologist Commnt Sodium 138 Potassium 3.8 Chloride 99.6 Carbon Dioxide 25 Anion Gap 17 BUN 9 Creatinine 0.6 L Estimated GFR > 60 BUN/Creatinine Ratio 15.00 Glucose 148 H POC Glucose 152 H 213 H Calcium 8.3 L Triglycerides 68 Cholesterol 133 LDL Cholesterol Direct 69 HDL Cholesterol 51 Cholesterol/HDL Ratio 2.60
[2017-06-12] MEDS: ZOFRAN IV PRN ×2 (02:50→08:07)
[2017-06-12] MEDS: MORPHINE IV PRN ×3 (02:50→23:54)
[2017-06-12] MEDS: NOVOLOG SUB-Q SCH ×4 (07:30→22:23)
[2017-06-12] MEDS: NORVASC PO SCH (10:00)
[2017-06-12] MEDS: LOVENOX SUB-Q SCH (10:00)
[2017-06-12] MEDS: PROTONIX PO SCH (10:00)
[2017-06-12] MEDS: REGLAN IV PRN (12:31)
--- NOTE | 2017-06-12 14:00 | Nuclear Medicine Report ---
NUCLEAR MEDICINE GASTRIC EMPTYING SCAN History: Nausea and vomiting. Findings: Anterior abdominal imaging was performed following 1 mCi of technetium 99m sulfur colloid in oatmeal. This examination was terminated after 30 minutes due to repeated episodes of vomiting by the patient. There is no evidence for gastric emptying out to 30 minutes. Although this is an incomplete study, half life for gastric emptying is calculated at 203 minutes. Impression: Limited exam. The patient terminated the exam early secondary to multiple episodes of vomiting. Gastroparesis is suspected. Please see above.
--- NOTE | 2017-06-12 15:00 | Gastroenterology Progress Note ---
Assessment and Plan - Patient Problems (1) Gastroparesis Current Visit: Yes Status: Acute (2) Intractable nausea and vomiting Current Visit: Yes Status: Acute Qualifiers: Vomiting type: unspecified Qualified Code(s): R11.2 - Nausea with vomiting , unspecified Plan to address problem: - Will get EGD to r/o gastric outlet obstruction (though was (-) by report at [facility] in January) for completeness sake. - OK to have sips of clears. - Minimize narcotics; would go with anxiolytics instead. Subjective Date of service: 06/12/17 Principal diagnosis: gastroparesis Interval history: The patient's Xray was reviewed with her. Suspect severe gastroparesis. No blood in emesis. No melena. Objective - Constitutional Vitals: Temp Pulse Resp BP Pulse Ox 98.8 F 81 20 139/76 99 06/12/17 07:42 06/12/17 07:42 06/12/17 12:30 06/12/17 07:42 06/12/17 07:42 General appearance: no acute distress - EENT Eyes: PERRL, EOM intact - Respiratory Respiratory effort: normal Respiratory: bilateral: CTA - Cardiovascular Rhythm: regular Heart Sounds: Present: S1 & S2 - Gastrointestinal General gastrointestinal: Present: soft, non-tender, non-distended - Labs CBC & Chem 7: 06/11/17 04:01 06/11/17 04:01 Labs: Laboratory Results - last 24 hr 06/11/17 06/11/17 06/12/17 16:40 21:57 05:48 POC Glucose 197 H 170 H 175 H 06/12/17 13:20 POC Glucose 173 H
--- NOTE | 2017-06-12 16:38 | Progress Note ---
Assessment and Plan Assessment and plan: 26-year-old with past medical history of mild intermittent asthma, type 1 diabetes, insulin-dependent. We'll presents with abdominal pain and intractable nausea and vomiting 3 days. On one episode of coffee-ground emesis. As per the patient she had a similar episode about 4 months ago. * Intractable nausea and vomiting, most likely due to acute flare of diabetic gastroparesis; IV fluids, antiemetics, keep nothing by mouth, unable to do nuclear medicine gastric empty study as she still vomiting. * Will get EGD to r/o gastric outlet obstruction , GI input appreciated * Insulin-dependent type 1 diabetes, uncontrolled: Sliding scale insulin, and resume home insulin regimen, hemoglobin A1c is 8.5, lipids at goal * Coffee ground emesis; GIB, likely a Halle-Biswas tear from protracted vomiting, started on PPI, GI consult appreciated, monitor hemoglobin * Leukouria: Highly doubt UTI as patient is asymptomatic, follow-up urine culture, negativ so far * Mild intermittent asthma; not in exacerbation, nebs as needed * DVT prophylaxis with Lovenox * HTN: continue BP meds, continue to optimize meds History Interval history: c/o of intractable nausea and vomiting associated abdominal pain. Unable to tolerate by mouth, even after she drinks water she vomited up it up, - Hospitalist Physical - Physical exam Narrative exam: General.: Appears ill, no distress, nontoxic HEENT: Moist mucous membranes, extraocular muscles intact, no lymphadenopathy Neck: supple Cardiac: S1-S2 heard Lungs: clear to auscultation bilaterally Abdomen: soft , epigastric tenderness, nondistended, bowel sounds positive Extremities: no edema clubbing or cyanosis Skin: no rash or lesions Neurologic: no gross focal deficits Psych: appropriate behavior, appropriate mood, corporative, judgment intact - Constitutional Vitals: Temp Pulse Resp BP Pulse Ox 99.1 F 77 20 147/78 98 06/12/17 15:11 06/12/17 15:11 06/12/17 15:11 06/12/17 15:11 06/12/17 15:11 General appearance: Present: mild distress Results - Labs CBC & Chem 7: 06/11/17 04:01 06/11/17 04:01 Labs: Laboratory Last Values WBC 11.7 K/mm3 (4.5-11.0) H 06/11/17 04:01 RBC 4.77 M/mm3 (3.65-5.03) 06/11/17 04:01 Hgb 12.7 gm/dl (10.1-14.3) 06/11/17 04:01 Hct 38.1 % (30.3-42.9) 06/11/17 04:01 MCV 80 fl (79-97) 06/11/17 04:01 MCH 27 pg (28-32) L 06/11/17 04:01 MCHC 33 % (30-34) 06/11/17 04:01 RDW 14.0 % (13.2-15.2) 06/11/17 04:01 Plt Count 272 K/mm3 (140-440) 06/11/17 04:01 Lymph % (Auto) 20.3 % (13.4-35.0) 06/09/17 21:06 [place] % (Auto) 6.5 % (0.0-7.3) 06/09/17 21:06 Eos % (Auto) 0.4 % (0.0-4.3) 06/09/17 21:06 Baso % (Auto) 0.7 % (0.0-1.8) 06/09/17 21:06 Lymph # Instrument Designer 06/11/17 04:01 [place] # 0.6 K/mm3 (0.0-0.8) 06/09/17 21:06 Eos # 0.0 K/mm3 (0.0-0.4) 06/09/17 21:06 Baso # 0.1 K/mm3 (0.0-0.1) 06/09/17 21:06 Add Manual Diff Complete 06/11/17 04:01 Total Counted 100 06/11/17 04:01 Seg Neutrophils % 72.1 % (40.0-70.0) H 06/09/17 21:06 Seg Neuts % (Manual) 45.0 % (40.0-70.0) 06/11/17 04:01 Band Neutrophils % 0 % 06/11/17 04:01 Lymphocytes % (Manual) 46.0 % (13.4-35.0) H 06/11/17 04:01 Reactive Lymphs % (Man) 1.0 % 06/11/17 04:01 Monocytes % (Manual) 8.0 % (0.0-7.3) H 06/11/17 04:01 Eosinophils % (Manual) 0 % (0.0-4.3) 06/11/17 04:01 Basophils % (Manual) 0 % (0.0-1.8) 06/11/17 04:01 Metamyelocytes % 0 % 06/11/17 04:01 Myelocytes % 0 % 06/11/17 04:01 Promyelocytes % 0 % 06/11/17 04:01 Blast Cells % 0 % 06/11/17 04:01 Nucleated RBC % Not Reportable 06/11/17 04:01 Seg Neutrophils # 7.1 K/mm3 (1.8-7.7) 06/09/17 21:06 Seg Neutrophils # Man 5.3 K/mm3 (1.8-7.7) 06/11/17 04:01 Band Neutrophils # 0.0 K/mm3 06/11/17 04:01 Lymphocytes # (Manual) 5.4 K/mm3 (1.2-5.4) 06/11/17 04:01 Abs React Lymphs (Man) 0.1 K/mm3 06/11/17 04:01 Monocytes # (Manual) 0.9 K/mm3 (0.0-0.8) H 06/11/17 04:01 Eosinophils # (Manual) 0.0 K/mm3 (0.0-0.4) 06/11/17 04:01 Basophils # (Manual) 0.0 K/mm3 (0.0-0.1) 06/11/17 04:01 Metamyelocytes # 0.0 K/mm3 06/11/17 04:01 Myelocytes # 0.0 K/mm3 06/11/17 04:01 Promyelocytes # 0.0 K/mm3 06/11/17 04:01 Blast Cells # 0.0 K/mm3 06/11/17 04:01 WBC Morphology Not Reportable 06/11/17 04:01 Hypersegmented Neuts Not Reportable 06/11/17 04:01 Hyposegmented Neuts Not Reportable 06/11/17 04:01 Hypogranular Neuts Not Reportable 06/11/17 04:01 Smudge Cells Not Reportable 06/11/17 04:01 Toxic Granulation Not Reportable 06/11/17 04:01 Toxic Vacuolation Not Reportable 06/11/17 04:01 Dohle Bodies Not Reportable 06/11/17 04:01 Pelger-Huet Anomaly Not Reportable 06/11/17 04:01 Al Rods Not Reportable 06/11/17 04:01 Platelet Estimate Consistent w auto 06/11/17 04:01 Clumped Platelets Not Reportable 06/11/17 04:01 Plt Clumps, EDTA Not Reportable 06/11/17 04:01 Large Platelets Not Reportable 06/11/17 04:01 Giant Platelets Not Reportable 06/11/17 04:01 Platelet Satelliting Not Reportable 06/11/17 04:01 Plt Morphology Comment Not Reportable 06/11/17 04:01 RBC Morphology Not Reportable 06/11/17 04:01 Dimorphic RBCs Not Reportable 06/11/17 04:01 Polychromasia Not Reportable 06/11/17 04:01 Hypochromasia Not Reportable 06/11/17 04:01 Poikilocytosis Not Reportable 06/11/17 04:01 Anisocytosis Not Reportable 06/11/17 04:01 Microcytosis Not Reportable 06/11/17 04:01 Macrocytosis Not Reportable 06/11/17 04:01 Spherocytes Not Reportable 06/11/17 04:01 Pappenheimer Bodies Not Reportable 06/11/17 04:01 Sickle Cells Not Reportable 06/11/17 04:01 Target Cells Not Reportable 06/11/17 04:01 Tear Drop Cells Not Reportable 06/11/17 04:01 Ovalocytes Not Reportable 06/11/17 04:01 Helmet Cells Not Reportable 06/11/17 04:01 [place] Bodies Not Reportable 06/11/17 04:01 [place] Rings Not Reportable 06/11/17 04:01 [place] Cells Not Reportable 06/11/17 04:01 Bite Cells Not Reportable 06/11/17 04:01 Crenated Cell Not Reportable 06/11/17 04:01 Elliptocytes Not Reportable 06/11/17 04:01 Acanthocytes (Spur) Not Reportable 06/11/17 04:01 Rouleaux Not Reportable 06/11/17 04:01 Hemoglobin C Crystals Not Reportable 06/11/17 04:01 Schistocytes Not Reportable 06/11/17 04:01 Malaria parasites Not Reportable 06/11/17 04:01 Kyle Bodies Not Reportable 06/11/17 04:01 Hem Pathologist Commnt No 06/11/17 04:01 Sodium 138 mmol/L (137-145) 06/11/17 04:01 Potassium 3.8 mmol/L (3.6-5.0) 06/11/17 04:01 Chloride 99.6 mmol/L (98-107) 06/11/17 04:01 Carbon Dioxide 25 mmol/L (22-30) 06/11/17 04:01 Anion Gap 17 mmol/L 06/11/17 04:01 BUN 9 mg/dL (7-17) 06/11/17 04:01 Creatinine 0.6 mg/dL (0.7-1.2) L 06/11/17 04:01 Estimated GFR > 60 ml/min 06/11/17 04:01 BUN/Creatinine Ratio 15.00 % 06/11/17 04:01 Glucose 148 mg/dL (65-100) H 06/11/17 04:01 POC Glucose 173 (70-105) H 06/12/17 13:20 Hemoglobin A1c 8.5 % (4-6) H 06/10/17 10:15 Calcium 8.3 mg/dL (8.4-10.2) L 06/11/17 04:01 Total Bilirubin 0.50 mg/dL (0.1-1.2) 06/09/17 21:06 AST 12 units/L (5-40) 06/09/17 21:06 ALT 13 units/L (7-56) 06/09/17 21:06 Alkaline Phosphatase 57 units/L (35-129) 06/09/17 21:06 Total Protein 7.4 g/dL (6.3-8.2) 06/09/17 21:06 Albumin 3.9 g/dL (3.9-5) 06/09/17 21:06 Albumin/Globulin Ratio 1.1 % 06/09/17 21:06 Triglycerides 68 mg/dL (2-149) 06/11/17 04:01 Cholesterol 133 mg/dL (50-199) 06/11/17 04:01 LDL Cholesterol Direct 69 mg/dL (50-130) 06/11/17 04:01 HDL Cholesterol 51 mg/dL (40-59) 06/11/17 04:01 Cholesterol/HDL Ratio 2.60 % 06/11/17 04:01 Lipase 20 units/L (13-60) 06/09/17 21:06 Urine Color Yellow (Yellow) 06/09/17 03:29 Urine Turbidity Clear (Clear) 06/09/17 03:29 Urine pH 5.0 (5.0-7.0) 06/09/17 03:29 Ur Specific [place] 1.035 (1.003-1.030) H 06/09/17 03:29 Urine Protein 100 mg/dl mg/dL (Negative) 06/09/17 03:29 Urine Glucose (UA) >=500 mg/dL (Negative) 06/09/17 03: Urine Ketones 80 mg/dL (Negative) 06/09/17 03:29 Urine Blood Lg (Negative) 06/09/17 03:29 Urine Nitrite Pos (Negative) 06/09/17 03:29 Urine Bilirubin Neg (Negative) 06/09/17 03:29 Urine Urobilinogen < 2.0 mg/dL (<2.0) 06/09/17 03:29 Ur Leukocyte Esterase Tr (Negative) 06/09/17 03:29 Urine WBC (Auto) 7.0 /HPF (0.0-6.0) H 06/09/17 03:29 Urine RBC (Auto) > 182.0 /HPF (0.0-6.0) 06/09/17 03:29 U Epithel Cells (Auto) 6.0 /HPF (0-13.0) 06/09/17 03:29 Urine Bacteria (Auto) 4+ /HPF (Negative) 06/09/17 03:29 Urine Mucus 3+ /HPF 06/09/17 03:29
[2017-06-12] MEDS: COMPAZINE 10 MG in NACL 0.9% 50 ML IV SCH (18:23)
[2017-06-12] MEDS ORDERED: COMPAZINE IV SCH (22:00)
[2017-06-13] MEDS: COMPAZINE 10 MG in NACL 0.9% 50 ML IV SCH ×2 (01:35→12:02)
[2017-06-13] MEDS: ZOFRAN IV PRN ×2 (03:41→08:45)
[2017-06-13] MEDS: NOVOLOG SUB-Q SCH ×3 (08:15→22:53)
[2017-06-13] MEDS: MORPHINE IV PRN ×2 (08:44→21:51)
--- NOTE | 2017-06-13 09:20 | Progress Note ---
Assessment and Plan Assessment and plan: 26-year-old with past medical history of mild intermittent asthma, type 1 diabetes, insulin-dependent. We'll presents with abdominal pain and intractable nausea and vomiting 3 days. On one episode of coffee-ground emesis. As per the patient she had a similar episode about 4 months ago. * Intractable nausea and vomiting, most likely due to acute flare of diabetic gastroparesis; IV fluids, antiemetics, keep nothing by mouth, unable to do nuclear medicine gastric empty study as she still vomiting. * EGD was done to rule out gastric outlet obstruction , GI input appreciated * EEG report showed : * "1. No outlet obstruction from stomach. 2. Minimal retained fluid, and no retained food. 3. LA Grade A esophagitis from vomiting." * Continue to wean off narcotics, advance diet as tolerated * Insulin-dependent type 1 diabetes, uncontrolled: Sliding scale insulin, and resume home insulin regimen, hemoglobin A1c is 8.5, lipids at goal * Coffee ground emesis; GIB, likely a Halle-Biswas tear from protracted vomiting, started on PPI, GI consult appreciated, monitor hemoglobin * Leukouria: Highly doubt UTI as patient is asymptomatic, follow-up urine culture, negative so far * Mild intermittent asthma; not in exacerbation, nebs as needed * DVT prophylaxis with Lovenox * HTN: continue BP meds, continue to optimize meds History Interval history: Nausea and vomiting is somewhat improved today. She has not eaten yet - Hospitalist Physical - Physical exam Narrative exam: General.: Appears ill, no distress, nontoxic HEENT: Moist mucous membranes, extraocular muscles intact, no lymphadenopathy Neck: supple Cardiac: S1-S2 heard Lungs: clear to auscultation bilaterally Abdomen: soft , epigastric tenderness, nondistended, bowel sounds positive Extremities: no edema clubbing or cyanosis Skin: no rash or lesions Neurologic: no gross focal deficits Psych: appropriate behavior, appropriate mood, corporative, judgment intact - Constitutional Vitals: Temp Pulse Resp BP Pulse Ox 98.2 F 79 18 142/78 99 06/13/17 08:00 06/13/17 08:00 06/13/17 08:00 06/13/17 08:00 06/13/17 08:00 Results - Labs CBC & Chem 7: 06/13/17 09:28 06/13/17 09:28 Labs: Laboratory Last Values WBC 11.7 K/mm3 (4.5-11.0) H 06/11/17 04:01 RBC 4.77 M/mm3 (3.65-5.03) 06/11/17 04:01 Hgb 12.7 gm/dl (10.1-14.3) 06/11/17 04:01 Hct 38.1 % (30.3-42.9) 06/11/17 04:01 MCV 80 fl (79-97) 06/11/17 04:01 MCH 27 pg (28-32) L 06/11/17 04:01 MCHC 33 % (30-34) 06/11/17 04:01 RDW 14.0 % (13.2-15.2) 06/11/17 04:01 Plt Count 272 K/mm3 (140-440) 06/11/17 04:01 Lymph % (Auto) 20.3 % (13.4-35.0) 06/09/17 21:06 [place] % (Auto) 6.5 % (0.0-7.3) 06/09/17 21:06 Eos % (Auto) 0.4 % (0.0-4.3) 06/09/17 21:06 Baso % (Auto) 0.7 % (0.0-1.8) 06/09/17 21:06 Lymph # Manager Of Application Development 06/11/17 04:01 [place] # 0.6 K/mm3 (0.0-0.8) 06/09/17 21:06 Eos # 0.0 K/mm3 (0.0-0.4) 06/09/17 21:06 Baso # 0.1 K/mm3 (0.0-0.1) 06/09/17 21:06 Add Manual Diff Complete 06/11/17 04:01 Total Counted 100 06/11/17 04:01 Seg Neutrophils % 72.1 % (40.0-70.0) H 06/09/17 21:06 Seg Neuts % (Manual) 45.0 % (40.0-70.0) 06/11/17 04:01 Band Neutrophils % 0 % 06/11/17 04:01 Lymphocytes % (Manual) 46.0 % (13.4-35.0) H 06/11/17 04:01 Reactive Lymphs % (Man) 1.0 % 06/11/17 04:01 Monocytes % (Manual) 8.0 % (0.0-7.3) H 06/11/17 04:01 Eosinophils % (Manual) 0 % (0.0-4.3) 06/11/17 04:01 Basophils % (Manual) 0 % (0.0-1.8) 06/11/17 04:01 Metamyelocytes % 0 % 06/11/17 04:01 Myelocytes % 0 % 06/11/17 04:01 Promyelocytes % 0 % 06/11/17 04:01 Blast Cells % 0 % 06/11/17 04:01 Nucleated RBC % Not Reportable 06/11/17 04:01 Seg Neutrophils # 7.1 K/mm3 (1.8-7.7) 06/09/17 21:06 Seg Neutrophils # Man 5.3 K/mm3 (1.8-7.7) 06/11/17 04:01 Band Neutrophils # 0.0 K/mm3 06/11/17 04:01 Lymphocytes # (Manual) 5.4 K/mm3 (1.2-5.4) 06/11/17 04:01 Abs React Lymphs (Man) 0.1 K/mm3 06/11/17 04:01 Monocytes # (Manual) 0.9 K/mm3 (0.0-0.8) H 06/11/17 04:01 Eosinophils # (Manual) 0.0 K/mm3 (0.0-0.4) 06/11/17 04:01 Basophils # (Manual) 0.0 K/mm3 (0.0-0.1) 06/11/17 04:01 Metamyelocytes # 0.0 K/mm3 06/11/17 04:01 Myelocytes # 0.0 K/mm3 06/11/17 04:01 Promyelocytes # 0.0 K/mm3 06/11/17 04:01 Blast Cells # 0.0 K/mm3 06/11/17 04:01 WBC Morphology Not Reportable 06/11/17 04:01 Hypersegmented Neuts Not Reportable 06/11/17 04:01 Hyposegmented Neuts Not Reportable 06/11/17 04:01 Hypogranular Neuts Not Reportable 06/11/17 04:01 Smudge Cells Not Reportable 06/11/17 04:01 Toxic Granulation Not Reportable 06/11/17 04:01 Toxic Vacuolation Not Reportable 06/11/17 04:01 Dohle Bodies Not Reportable 06/11/17 04:01 Pelger-Huet Anomaly Not Reportable 06/11/17 04:01 Al Rods Not Reportable 06/11/17 04:01 Platelet Estimate Consistent w auto 06/11/17 04:01 Clumped Platelets Not Reportable 06/11/17 04:01 Plt Clumps, EDTA Not Reportable 06/11/17 04:01 Large Platelets Not Reportable 06/11/17 04:01 Giant Platelets Not Reportable 06/11/17 04:01 Platelet Satelliting Not Reportable 06/11/17 04:01 Plt Morphology Comment Not Reportable 06/11/17 04:01 RBC Morphology Not Reportable 06/11/17 04:01 Dimorphic RBCs Not Reportable 06/11/17 04:01 Polychromasia Not Reportable 06/11/17 04:01 Hypochromasia Not Reportable 06/11/17 04:01 Poikilocytosis Not Reportable 06/11/17 04:01 Anisocytosis Not Reportable 06/11/17 04:01 Microcytosis Not Reportable 06/11/17 04:01 Macrocytosis Not Reportable 06/11/17 04:01 Spherocytes Not Reportable 06/11/17 04:01 Pappenheimer Bodies Not Reportable 06/11/17 04:01 Sickle Cells Not Reportable 06/11/17 04:01 Target Cells Not Reportable 06/11/17 04:01 Tear Drop Cells Not Reportable 06/11/17 04:01 Ovalocytes Not Reportable 06/11/17 04:01 Helmet Cells Not Reportable 06/11/17 04:01 [place] Bodies Not Reportable 06/11/17 04:01 [place] Rings Not Reportable 06/11/17 04:01 [place] Cells Not Reportable 06/11/17 04:01 Bite Cells Not Reportable 06/11/17 04:01 Crenated Cell Not Reportable 06/11/17 04:01 Elliptocytes Not Reportable 06/11/17 04:01 Acanthocytes (Spur) Not Reportable 06/11/17 04:01 Rouleaux Not Reportable 06/11/17 04:01 Hemoglobin C Crystals Not Reportable 06/11/17 04:01 Schistocytes Not Reportable 06/11/17 04:01 Malaria parasites Not Reportable 06/11/17 04:01 [place] Bodies Not Reportable 06/11/17 04:01 Hem Pathologist Commnt No 06/11/17 04:01 Sodium 138 mmol/L (137-145) 06/11/17 04:01 Potassium 3.8 mmol/L (3.6-5.0) 06/11/17 04:01 Chloride 99.6 mmol/L (98-107) 06/11/17 04:01 Carbon Dioxide 25 mmol/L (22-30) 06/11/17 04:01 Anion Gap 17 mmol/L 06/11/17 04:01 BUN 9 mg/dL (7-17) 06/11/17 04:01 Creatinine 0.6 mg/dL (0.7-1.2) L 06/11/17 04:01 Estimated GFR > 60 ml/min 06/11/17 04:01 BUN/Creatinine Ratio 15.00 % 06/11/17 04:01 Glucose 148 mg/dL (65-100) H 06/11/17 04:01 POC Glucose 134 (70-105) H 06/13/17 05:49 Hemoglobin A1c 8.5 % (4-6) H 06/10/17 10:15 Calcium 8.3 mg/dL (8.4-10.2) L 06/11/17 04:01 Total Bilirubin 0.50 mg/dL (0.1-1.2) 06/09/17 21:06 AST 12 units/L (5-40) 06/09/17 21:06 ALT 13 units/L (7-56) 06/09/17 21:06 Alkaline Phosphatase 57 units/L (35-129) 06/09/17 21:06 Total Protein 7.4 g/dL (6.3-8.2) 06/09/17 21:06 Albumin 3.9 g/dL (3.9-5) 06/09/17 21:06 Albumin/Globulin Ratio 1.1 % 06/09/17 21:06 Triglycerides 68 mg/dL (2-149) 06/11/17 04:01 Cholesterol 133 mg/dL (50-199) 06/11/17 04:01 LDL Cholesterol Direct 69 mg/dL (50-130) 06/11/17 04:01 HDL Cholesterol 51 mg/dL (40-59) 06/11/17 04:01 Cholesterol/HDL Ratio 2.60 % 06/11/17 04:01 Lipase 20 units/L (13-60) 06/09/17 21:06 Urine Color Yellow (Yellow) 06/09/17 03:29 Urine Turbidity Clear (Clear) 06/09/17 03:29 Urine pH 5.0 (5.0-7.0) 06/09/17 03:29 Ur Specific [place] 1.035 (1.003-1.030) H 06/09/17 03:29 Urine Protein 100 mg/dl mg/dL (Negative) 06/09/17 03: Urine Glucose (UA) >=500 mg/dL (Negative) 06/09/17 03:29 Urine Ketones 80 mg/dL (Negative) 06/09/17 03:29 Urine Blood Lg (Negative) 06/09/17 03:29 Urine Nitrite Pos (Negative) 06/09/17 03:29 Urine Bilirubin Neg (Negative) 06/09/17 03:29 Urine Urobilinogen < 2.0 mg/dL (<2.0) 06/09/17 03:29 Ur Leukocyte Esterase Tr (Negative) 06/09/17 03:29 Urine WBC (Auto) 7.0 /HPF (0.0-6.0) H 06/09/17 03:29 Urine RBC (Auto) > 182.0 /HPF (0.0-6.0) 06/09/17 03:29 U Epithel Cells (Auto) 6.0 /HPF (0-13.0) 06/09/17 03:29 Urine Bacteria (Auto) 4+ /HPF (Negative) 06/09/17 03:29 Urine Mucus 3+ /HPF 06/09/17 03:29
[2017-06-13 09:46] LABS: Hematocrit 37.2 % (30.3-42.9); Hemoglobin 12.4 gm/dl (10.1-14.3); Mean Corpuscular HGB Conc 33 % (30-34); Mean Corpuscular Hemoglobin 26 pg (28-32); Mean Corpuscular Volume 79 fl (79-97); Platelet Count 260 K/mm3 (140-440); Red Blood Count 4.71 M/mm3 (3.65-5.03); Red Cell Distribution Width 13.6 % (13.2-15.2); White Blood Count 8.8 K/mm3 (4.5-11.0)
[2017-06-13 10:05] LABS: Anion Gap 16 mmol/L; Blood Urea Nitrogen 7 mg/dL (7-17); Calcium 8.1 mg/dL (8.4-10.2); Carbon Dioxide 25 mmol/L (22-30); Chloride 96.3 mmol/L (98-107); Glucose 179 mg/dL (65-100); Potassium 3.3 mmol/L (3.6-5.0); Sodium 134 mmol/L (137-145)
[2017-06-13 10:06] LABS: Magnesium 1.8 mg/dL (1.7-2.3); Phosphorous 2.5 mg/dL (2.5-4.5)
[2017-06-13] MEDS: NACL 0.9% 1000 ML 1,000 ML IV SCH (10:34)
[2017-06-13] MEDS: LOVENOX SUB-Q SCH (10:35)
[2017-06-13] MEDS ORDERED: NACL 0.9% 1000 ML 1,000 ML IV SCH (13:00)
--- NOTE | 2017-06-13 14:20 | Anesthesia Day of Surgery ---
Anesthesia Day of Surgery - Day of Surgery Patient Examined: Yes Patient H&P Reviewed: Yes Patient is NPO: Yes
--- NOTE | 2017-06-13 14:20 | Anesthesia Consultation ---
Anesthesia Consult and Med Hx Date of service: 06/13/17 - Airway Anesthetic Teeth Evaluation: Good ROM Head & Neck: Adequate Mental/Hyoid Distance: Adequate Mallampati Class: Class II Intubation Access Assessment: Probably Good - Pulmonary Exam CTA: Yes - Cardiac Exam Cardiac Exam: RRR - Pre-Operative Health Status ASA Pre-Surgery Classification: ASA2 Proposed Anesthetic Plan: MAC - Pulmonary Hx Asthma: Yes COPD: No Hx Pneumonia: No - Endocrine Hx End Stage Renal Disease: No Hx Non-Insulin Dependent Diabetes: Yes - Other Systems Hx Cancer: No Hx Obesity: Yes
[2017-06-13] MEDS ORDERED: DIPRIVAN 10 MG/ML IV ONE (15:27)
[2017-06-13] MEDS ORDERED: WATER FOR IRRIG STERILE IR ONE (15:33)
[2017-06-13] MEDS ORDERED: WATER FOR IRRIG STERILE ONE (15:33)
[2017-06-13] MEDS ORDERED: MORPHINE IV PRN (15:45)
--- NOTE | 2017-06-13 15:48 | Post Operative Note ---
Pre-op diagnosis: Gastroparesis Post-op diagnosis: same Findings: 1. No outlet obstruction from stomach. 2. Minimal retained fluid, and no retained food. 3. LA Grade A esophagitis from vomiting. Procedure: EGD Anesthesia: MAC Surgeon: MARIE CARBALLO Estimated blood loss: none Pathology: none Specimen disposition: other (N/A) Condition: stable Disposition: floor (Recs: 1. Continue to wean narcotics, and will transition to librax/reglan for gastroparesis. 2. Full liquid diet and advance as tolerated. 3. Continue protonix daily for esophagitis. 4. OK to d/c home when taking PO ; will sign off; please call if needed.)
[2017-06-13] MEDS ORDERED: NS 0.45/KCL 20MEQ 20 MEQ/1,000 ML BAG IV SCH (18:00)
[2017-06-13] MEDS: LIBRAX 5-2.5 MG PO SCH ×2 (18:13→21:50)
[2017-06-13] MEDS: NORVASC PO SCH (18:25)
[2017-06-13] MEDS: REGLAN IV PRN (21:50)
--- NOTE | 2017-06-13 22:00 | Operative Report ---
PROCEDURE PERFORMED: Esophagogastroduodenoscopy. PREOPERATIVE DIAGNOSES: Nausea, vomiting, rule out gastric outlet obstruction. ENDOSCOPIST: Jose R Moise MD INSTRUMENT: Leapfunder video endoscope. MEDICATIONS: MAC anesthesia by [facility]esthesia [facility]. COMPLICATIONS: No apparent complications. ESTIMATED BLOOD LOSS: Minimal. SPECIMENS: None. IMPLANTS: None. SPOOL SORTER: None. CONDITION AT COMPLETION: Stable. TECHNIQUE: The patient was informed of the risks and benefits of the procedure. She signed the informed consent to proceed. She was placed in the left lateral decubitus position. The above sedative medications were given. Her vital signs remained stable throughout the procedure. The instrument was advanced from the mouth to the second portion of the duodenum under direct visualization. At that point, the bowel was insufflated and the endoscope was slowly withdrawn. FINDINGS: 1. No evidence of gastric outlet obstruction with a normal-appearing pylorus. 2. There was minimal retained fluid, and no retained food, in the stomach. 3. LA grade A esophagitis from vomiting. RECOMMENDATIONS: 1. Continue to wean narcotics and we will transition to Librax and Reglan for gastroparesis. 2. Full liquid diet and advance as tolerated. 3. Continue Protonix daily for esophagitis. 4. Okay to discharge the patient home when taking oral food and medications; we will sign off. Please call if needed. JOB# [id number] GAVI/NTS
[2017-06-14] MEDS: MORPHINE IV PRN (05:03)
[2017-06-14] MEDS: COMPAZINE 10 MG in NACL 0.9% 50 ML IV SCH ×3 (05:06→10:12)
[2017-06-14 08:23] VITALS: BP 142/92
[2017-06-14] MEDS: LIBRAX 5-2.5 MG PO SCH (08:23)
[2017-06-14] MEDS: NOVOLOG SUB-Q SCH (08:29)
[2017-06-14] MEDS: PROTONIX PO SCH (10:02)
[2017-06-14] MEDS: LOVENOX SUB-Q SCH (10:03)
[2017-06-14] MEDS: NORVASC PO SCH (10:03)
--- NOTE | 2017-06-14 13:09 | Discharge Summary ---
Providers - Providers Date of Admission: 06/10/17 10:08 Attending physician: ANGIE REZA MD 06/10/17 10:14 Consult to Physician [CONS] Routine Consulting Provider: ARTURO REYES Reason For Exam: Abd.pain and coffee ground emesis Place consult to:: Glynn FULLER Notified:: GLYNN Phone number called:: IN HOUSE Was contact made?: Yes If yes, spoke with:: GLYNN Time called:: 11:05 Comment:: ANUP NOTIFIED Primary care physician: SUPERINTEND[employer] GENERATION Hospitalization Condition: Stable Procedures: EGD report showed : * "1. No outlet obstruction from stomach. 2. Minimal retained fluid, and no retained food. 3. LA Grade A esophagitis from vomiting." Hospital course: 26-year-old with past medical history of mild intermittent asthma, type 1 diabetes, insulin-dependent. We'll presents with abdominal pain and intractable nausea and vomiting 3 days. On one episode of coffee-ground emesis. As per the patient she had a similar episode about 4 months prior. She was admitted for treatment of intractable nausea and vomiting due to flare of diabetic gastroparesis. Was given supportive care, antiemetics, pain medications. She received GI consult, she went on to have EGD to rule out gastric outlet obstruction. It only showed mild esophagitis from vomiting, and was not evidence of gastric outlet obstruction. The patient clinically improved and her diet was advanced. She did have an episode of emesis which resolved and no specific intervention. She received a PPI, her hemoglobin remained stable. Infection workup was done and urine cultures were negative. Discharge diagnoses * Intractable nausea and vomiting, most likely due to acute flare of diabetic gastroparesis; IV fluids, antiemetics, keep nothing by mouth, unable to do nuclear medicine gastric empty study as she still vomiting. * Insulin-dependent type 1 diabetes, uncontrolled: Sliding scale insulin, and resume home insulin regimen, hemoglobin A1c is 8.5, lipids at goal * GIB, due to esophagitis from protracted vomiting, * Mild intermittent asthma; not in exacerbation, nebs as needed * HTN Disposition: DC- TO HOME OR SELFCARE Time spent for discharge: 33 minutes Core Measure Documentation - Palliative Care Palliative Care/ Comfort Measures: Not Applicable - Core Measures Any of the following diagnoses?: none Exam - Constitutional Vitals: Temp Pulse Resp BP Pulse Ox 98.1 F 94 H 18 142/92 99 06/14/17 08:16 06/14/17 08:16 06/14/17 08:16 06/14/17 10:03 06/14/17 08:16 General appearance: Present: no acute distress, well-nourished - EENT Eyes: Present: PERRL ENT: hearing intact, clear oral mucosa - Neck Neck: Present: supple, normal ROM - Respiratory Respiratory effort: normal Respiratory: bilateral: CTA - Cardiovascular Heart Sounds: Present: S1 & S2. Absent: rub, click - Extremities Extremities: pulses symmetrical, No edema Peripheral Pulses: within normal limits - Abdominal General gastrointestinal: Present: soft, non-tender, non-distended, normal bowel sounds Female genitourinary: Present: normal - Integumentary Integumentary: Present: clear, warm, dry - Musculoskeletal Musculoskeletal: gait normal, strength equal bilaterally - Psychiatric Psychiatric: appropriate mood/affect, intact judgment & insight - Neurologic Neurologic: CNII-XII intact, moves all extremities Plan Follow up with: PRIMARY CARE, [Primary Care Provider] - 3-5 Days Forms: Work/School Release Form Prescriptions: amLODIPine [Norvasc] 5 mg PO QDAY #30 tablet chlordiazePOXIDE/CLIDINIUM [Librax 5-2.5 mg] 1 cap PO ACHS #120 capsule Ondansetron [Zofran TAB] 4 mg PO Q8HR PRN #90 tablet PRN Reason: Nausea Pantoprazole [Protonix TAB] 40 mg PO QDAY #30 tablet
== END 2017-06-14 15:00 | disposition home or self-care (01) | DRG 73 ==
LOC: ED 19:16 → 3A 06-10 10:08
PROVIDERS: ADMIT Internal Medicine; ATTEND Internal Medicine
PROC: 3E0234Z Introduction of Serum, Toxoid and Vaccine into Muscle, Percutaneous Approach (ICD-10-PCS; 2017-06-10)
PROC: 0DJ08ZZ Inspection of Upper Intestinal Tract, Via Natural or Artificial Opening Endoscopic (ICD-10-PCS; principal; 2017-06-13)
DX: E10.43 Type 1 diabetes mellitus with diabetic autonomic (poly)neuropathy (principal); K22.11 Ulcer of esophagus with bleeding; K31.84 Gastroparesis; I10 Essential (primary) hypertension; J45.909 Unspecified asthma, uncomplicated; M19.90 Unspecified osteoarthritis, unspecified site; E86.0 Dehydration; Z88.8 Allergy status to other drugs, medicaments and biological substances; Z88.2 Allergy status to sulfonamides; Z23 Encounter for immunization
CPT/HCPCS: 36415; 74020; 76700; 78264; 80048; 80053; 80061; 81001; 82962; 83036; 83690; 83735; 84100; 85007; 85025; 85027; 87086; 90686; 96374; 96375; 96376; A9541; C9113; J0780; J1650; J1815; J2270; J2405; J2704; J2765; J7030; Q0162

== ENCOUNTER 2017-07-13 13:26 | Inpatient (IN) | payer OTHER ==
[2017-07-13 13:57] LABS: Basophils % (Auto) 0.9 % (0.0-1.8); Eosinophils % (Auto) 0.1 % (0.0-4.3); Hematocrit 43.5 % (30.3-42.9); Hemoglobin 13.9 gm/dl (10.1-14.3); Mean Corpuscular HGB Conc 32 % (30-34); Mean Corpuscular Hemoglobin 26 pg (28-32); Mean Corpuscular Volume 82 fl (79-97); Platelet Count 325 K/mm3 (140-440); Red Blood Count 5.33 M/mm3 (3.65-5.03); Red Cell Distribution Width 14.7 % (13.2-15.2); White Blood Count 11.1 K/mm3 (4.5-11.0)
[2017-07-13] MEDS ORDERED: NACL 0.9% 1000 ML 1,000 ML ONE (14:02)
[2017-07-13] MEDS ORDERED: ZOFRAN ONE (14:02)
[2017-07-13] MEDS ORDERED: MORPHINE IV ONE (14:04)
[2017-07-13] MEDS ORDERED: LIDOCAINE VISCOUS 2% PO ONE (14:04)
[2017-07-13 14:07] LABS: Anion Gap 24 mmol/L; BUN/Creatinine Ratio 10; Blood Urea Nitrogen 6 mg/dL (7-17); Calcium 9.1 mg/dL (8.4-10.2); Carbon Dioxide 23 mmol/L (22-30); Chloride 97.3 mmol/L (98-107); Glucose 317 mg/dL (65-100); Potassium 3.9 mmol/L (3.6-5.0); Sodium 140 mmol/L (137-145)
[2017-07-13] MEDS ORDERED: ZOFRAN IV ONE ×2 (14:08→14:19)
[2017-07-13] MEDS ORDERED: NACL 0.9% 1000 ML 1,000 ML IV ONE (14:08)
[2017-07-13 14:20] LABS: Alanine Aminotransferase 13 units/L (7-56); Albumin 3.9 g/dL (3.9-5); Alkaline Phosphatase 59 units/L (35-129)
[2017-07-13 14:33] LABS: Bilirubin,Direct < 0.2 mg/dL (0-0.2)
[2017-07-13] MEDS ORDERED: REGLAN IV ONE ×2 (14:33→14:51)
--- NOTE | 2017-07-13 14:48 | History and Physical Report ---
History of Present Illness Chief complaint: My stomach hurts, and i keep throwing up History of present illness: 26 YO Female with HTN, DM, Obesity, Asthma, Esophagitis,Obesity, Metabolic Syndrome presents to ED for evaluation. Pt states that she has experienced nausea, vomiting, abdominal discomfort after prolonged nausea/vomiting and sore throat for the past 2 days with persistent symptoms over the same time frame. Patient states that sore throat sensation feels as is she has "swallowed razor blades". Pt denies fever, chills, dysuria, vaginal discharge, chest pain, shortness of breath, headache, stiff neck, numbness, tingling, blurry vision, hemoptysis, recent travels or sick contacts. Pt seen and evaluated inED and found to be in distress with intractible nausea and bilious vomiting. Pt unable to tolerated oral intake. Past History Past Medical History: diabetes, other (Gastroparesis, Esophagitis,Asthma) Past Surgical History: Other (endoscopy) Social history: single. denies: smoking, alcohol abuse, prescription drug abuse Family history: diabetes, hypertension Medications and Allergies Allergies Allergy/AdvReac Type Severity Reaction Status Date / Time Sulfa (Sulfonamide Allergy Swelling Verified 06/09/17 20:42 Antibiotics) sulfamethoxazole Allergy Swelling Verified 06/09/17 20:42 [From Bactrim] trimethoprim [From Bactrim] Allergy Swelling Verified 06/09/17 20:42 Home Medications Medication Instructions Recorded Confirmed Last Taken Type Insulin Lispro [Humalog 100 0 units SQ AC 06/10/17 07/13/17 3 Days Ago History UNITS/ML Kwikpen] Ondansetron [Zofran TAB] 4 mg PO Q8HR PRN #90 tablet 06/14/17 07/13/17 07/03/17 Rx Pantoprazole [Protonix TAB] 40 mg PO QDAY #30 tablet 06/14/17 07/13/17 07/03/17 Rx amLODIPine [Norvasc] 5 mg PO QDAY #30 tablet 06/14/17 07/13/17 07/03/17 Rx chlordiazePOXIDE/CLIDINIUM [Librax 1 cap PO ACHS #120 capsule 06/14/17 07/13/17 07/03/17 Rx 5-2.5 mg] Active Meds: Active Medications Sodium Chloride (Nacl 0.9% 1000 Ml) 1,000 mls @ 999 mls/hr IV BOLUS ONE Stop: 07/13/17 15:08 Last Admin: 07/13/17 14:01 Dose: 999 mls/hr Review of Systems Constitutional: no weight loss, no weight gain, no fever, no chills, no sweats Ears, nose, mouth and throat: no ear pain, no ear discharge, no tinnitis, no decreased hearing Breasts: no change in shape, no swelling, no mass Cardiovascular: no chest pain, no orthopnea, no palpitations, no rapid/ irregular heart beat, no edema, no syncope, no lightheadedness Respiratory: no cough, no cough with sputum, no excessive sputum, no hemoptysis , no shortness of breath, no dyspnea on exertion Gastrointestinal: nausea, vomiting, other (odynophagia), no abdominal pain, no diarrhea, no constipation, no change in bowel habits, no hematemesis, no coffee ground emesis Genitourinary Female: no pelvic pain, no flank pain, no menorrhagia, no dysuria Rectal: no pain, no incontinence, no bleeding Musculoskeletal: no neck stiffness, no neck pain, no shooting arm pain, no arm numbness/tingling, no low back pain Integumentary: no rash, no pruritis, no redness, no sores, no wounds, no jaundice Neurological: no transient paralysis, no paralysis, no weakness, no parathesias , no numbness, no tingling, no seizures, no syncope Psychiatric: no anxiety, no memory loss, no change in sleep habits, no sleep disturbances, no insomnia, no hypersomnia, no change in appetite Endocrine: no cold intolerance, no heat intolerance, no polyphagia, no excessive thirst, no polydipsia, no polyuria, no nocturia Hematologic/Lymphatic: no easy bruising, no easy bleeding Allergic/Immunologic: no urticaria, no allergic rhinitis, no wheezing Exam - Constitutional Vitals: Temp Pulse Resp BP Pulse Ox 97.7 F 93 H 24 156/95 100 07/13/17 13:31 07/13/17 13:31 07/13/17 13:31 07/13/17 13:31 07/13/17 13:31 General appearance: Present: mild distress, obese - EENT Eyes: Present: PERRL ENT: hearing intact, clear oral mucosa - Neck Neck: Present: supple, normal ROM - Respiratory Respiratory effort: normal Respiratory: bilateral: CTA - Cardiovascular Heart Sounds: Present: S1 & S2. Absent: rub, click - Extremities Extremities: pulses symmetrical, No edema Peripheral Pulses: within normal limits - Abdominal General gastrointestinal: Present: soft, non-tender, non-distended, normal bowel sounds Female genitourinary: Present: normal - Integumentary Integumentary: Present: clear, warm, dry - Musculoskeletal Musculoskeletal: gait normal, strength equal bilaterally - Psychiatric Psychiatric: appropriate mood/affect, intact judgment & insight - Neurologic Neurologic: CNII-XII intact, moves all extremities Results - Labs CBC & Chem 7: 07/13/17 13:40 07/13/17 13:40 Labs: Abnormal lab results 07/13/17 07/13/17 07/13/17 Range/Units 13:40 13:40 13:41 WBC 11.1 H (4.5-11.0) K/mm3 RBC 5.33 H (3.65-5.03) M/mm3 Hct 43.5 H (30.3-42.9) % MCH 26 L (28-32) pg Seg Neutrophils % 80.8 H (40.0-70.0) % Seg Neutrophils # 8.9 H (1.8-7.7) K/mm3 Chloride 97.3 L (98-107) mmol/L BUN 6 L (7-17) mg/dL Creatinine 0.6 L (0.7-1.2) mg/dL Glucose 317 H (65-100) mg/dL POC Glucose 271 H (70-105) Assessment and Plan - Patient Problems (1) Gastroparesis Current Visit: Yes Status: Acute Plan to address problem: Bowel rest, supportive care, ppi therapy, GI consulted, early ambulation, (2) Hyperglycemia due to type 1 diabetes mellitus Current Visit: Yes Status: Acute Plan to address problem: ADA diet as tolerated, insulin, accu check (3) Intractable nausea and vomiting Current Visit: No Status: Acute Qualifiers: Vomiting type: unspecified Qualified Code(s): R11.2 - Nausea with vomiting , unspecified Plan to address problem: Anti emetic therpay,bowel rest, NGT if worsening symptoms. (4) Esophagitis Current Visit: Yes Status: Acute Plan to address problem: PPI therapy, steroid therapy, empiric abx, Carafate, GI consulted, (5) DVT prophylaxis Current Visit: Yes Status: Acute Plan to address problem: SCD to BLE while in bed,
[2017-07-13] MEDS ORDERED: TYLENOL PO PRN (14:51)
[2017-07-13] MEDS ORDERED: PROVENTIL IH PRN (14:51)
--- NOTE | 2017-07-13 14:53 | Emergency Department Report ---
ED N/V/D HPI - General Chief complaint: Nausea/Vomiting/Diarrhea Stated complaint: VOMITING Time Seen by Provider: 07/13/17 14:04 Source: patient Mode of arrival: Ambulatory Limitations: No Limitations - History of Present Illness Initial comments: This is a 26-year-old female nontoxic, well nourished in appearance, no acute signs of distress presents to the ED complaining of sore throat, nausea, vomiting x2 days. Patient describes sore throat as sensation as swallowing razer blades. Denies any fever, dysuria, vaginal discharge, chest pain, shortness of breathe, headache, stiff neck, numbness, tingling, blurry vision. Denies hemoptysis. Denies recent travels or sick contacts. Patient stated she has presented with history of diabetes on Humulin and Humalog sliding scale. Last menstrual cycle 07/12/2017. PMH includes DM and asthma. Allergies includes bactrim and sulfa drugs. MD complaint: nausea, vomiting -: Gradual, days(s) (2) Description of Vomiting: food contents, watery Associated Abdominal Pain: No Radiation: none Severity: mild Pain Scale: 8 (sore throat) Consistency: constant Improves with: none Worsens with: none Associated Symptoms: nausea/vomiting. denies: myalgias, chest pain, cough, diaphoresis, fever/chills, headaches, loss of appetite, malaise, rash, dysuria, shortness of breath, syncope, weakness - Related Data Home Medications Medication Instructions Recorded Confirmed Last Taken Insulin Lispro [Humalog 100 0 units SQ AC 06/10/17 06/10/17 06/06/17 UNITS/ML Kwikpen] Previous Rx's Medication Instructions Recorded Last Taken Type Ondansetron [Zofran TAB] 4 mg PO Q8HR PRN #90 tablet 06/14/17 Unknown Rx Pantoprazole [Protonix TAB] 40 mg PO QDAY #30 tablet 06/14/17 Unknown Rx amLODIPine [Norvasc] 5 mg PO QDAY #30 tablet 06/14/17 Unknown Rx chlordiazePOXIDE/CLIDINIUM [Librax 1 cap PO ACHS #120 capsule 06/14/17 Unknown Rx 5-2.5 mg] Allergies Allergy/AdvReac Type Severity Reaction Status Date / Time Sulfa (Sulfonamide Allergy Swelling Verified 06/09/17 20:42 Antibiotics) sulfamethoxazole Allergy Swelling Verified 06/09/17 20:42 [From Bactrim] trimethoprim [From Bactrim] Allergy Swelling Verified 06/09/17 20:42 ED Review of Systems ROS: Stated complaint: VOMITING Other details as noted in HPI Constitutional: denies: chills, fever Eyes: denies: eye pain, eye discharge, vision change ENT: denies: ear pain, throat pain Respiratory: denies: cough, shortness of breath, wheezing Cardiovascular: denies: chest pain, palpitations Endocrine: no symptoms reported Gastrointestinal: nausea, vomiting. denies: abdominal pain, diarrhea Genitourinary: denies: urgency, dysuria, discharge Musculoskeletal: denies: back pain, joint swelling, arthralgia Skin: denies: rash, lesions Neurological: denies: headache, weakness, paresthesias Psychiatric: denies: anxiety, depression Hematological/Lymphatic: denies: easy bleeding, easy bruising ED Past Medical Hx - Past Medical History Previous Medical History?: Yes Hx Congestive Heart Failure: No Hx Diabetes: Yes Hx Asthma: Yes Hx COPD: No Additional medical history: GI bleeding and unable to follow up with GI - Surgical History Past Surgical History?: No - Social History Smoking Status: Former Smoker Substance Use Type: Alcohol, Prescribed - Medications Home Medications: Home Medications Medication Instructions Recorded Confirmed Last Taken Type Insulin Lispro [Humalog 100 0 units SQ AC 06/10/17 06/10/17 06/06/17 History UNITS/ML Kwikpen] Ondansetron [Zofran TAB] 4 mg PO Q8HR PRN #90 tablet 06/14/17 Unknown Rx Pantoprazole [Protonix TAB] 40 mg PO QDAY #30 tablet 06/14/17 Unknown Rx amLODIPine [Norvasc] 5 mg PO QDAY #30 tablet 06/14/17 Unknown Rx chlordiazePOXIDE/CLIDINIUM [Librax 1 cap PO ACHS #120 capsule 06/14/17 Unknown Rx 5-2.5 mg] ED Physical Exam - General Limitations: No Limitations General appearance: alert, in no apparent distress - Head Head exam: Present: atraumatic, normocephalic, normal inspection - Eye Eye exam: Present: normal appearance, PERRL, EOMI. Absent: scleral icterus, conjunctival injection, nystagmus, periorbital swelling, periorbital tenderness Pupils: Present: normal accommodation - ENT ENT exam: Present: mucous membranes moist, TM's normal bilaterally, normal external ear exam - Expanded ENT Exam Expanded Ear exam: Present: normal external inspection Mouth exam: Present: normal external inspection, tongue normal. Absent: drooling, trismus, muffled voice, tongue elevation, laceration Teeth exam: Present: normal inspection Throat exam: Positive: tonsillar erythema. Negative: tonsillomegaly, tonsillar exudate, R peritonsillar mass, L peritonsillar mass - Neck Neck exam: Present: normal inspection, full ROM. Absent: tenderness, meningismus, lymphadenopathy, thyromegaly - Respiratory Respiratory exam: Present: normal lung sounds bilaterally. Absent: respiratory distress, wheezes, rales, rhonchi, stridor, chest wall tenderness, accessory muscle use, decreased breath sounds, prolonged expiratory - Cardiovascular Cardiovascular Exam: Present: regular rate, normal rhythm, tachycardia, normal heart sounds. Absent: irregular rhythm, systolic murmur, diastolic murmur, rubs , gallop - GI/Abdominal GI/Abdominal exam: Present: soft, normal bowel sounds. Absent: distended, tenderness, guarding, rebound, rigid, diminished bowel sounds - Rectal Rectal exam: Present: deferred - Extremities Exam Extremities exam: Present: normal inspection, full ROM, normal capillary refill. Absent: tenderness, pedal edema, joint swelling, calf tenderness - Back Exam Back exam: Present: normal inspection, full ROM. Absent: tenderness, CVA tenderness (R), CVA tenderness (L), muscle spasm, paraspinal tenderness, vertebral tenderness, rash noted - Neurological Exam Neurological exam: Present: alert, oriented X3, CN II-XII intact, normal gait, reflexes normal - Psychiatric Psychiatric exam: Present: normal affect, normal mood - Skin Skin exam: Present: warm, dry, intact, normal color. Absent: rash ED Course Vital Signs 07/13/17 13:31 Temperature 97.7 F Pulse Rate 93 H Respiratory 24 Rate Blood Pressure 156/95 O2 Sat by Pulse 100 Oximetry - Reevaluation(s) Reevaluation #1: 07/13/17 15:01 Patient is speaking in full sentences with no signs of distress noted. ED Medical Decision Making - Lab Data Result diagrams: 07/13/17 13:40 07/13/17 13:40 - Medical Decision Making This is a 18-year-old female that presents with generalized nausea vomiting and sore throat. Labs are mostly unremarkable except anion gap 24. Urine and pending. Patient stated has not taken her insulin medication and stated shes on sliding scale and takes 2 unit for 270 blood glucose. PAtient received 8 of Zofran and 10 of reglan, IV fluids resuscitation and continues to have n/v. Patient was given lidocaine visous for sore throat. Patient was given a PPI. Vitals signs stable . Patient was consulted with Dr. Wild and agrees to the plan of care in the ED with admission. Dr. Sheridan consulted and admitted patient to his services. She'll be admitted to the hospital for further evaluation and treatment and was accepted by the hospitalist service. Patient was put on a monitoring manager. Patient agrees to the plan of care for admission with no signs noted. By the time of admission, patient is stable, vital signs stable, and patient is nontoxic appearance. Critical care attestation.: If time is entered above; I have spent that time in minutes in the direct care of this critically ill patient, excluding procedure time. ED Disposition Clinical Impression: Hyperglycemia due to type 1 diabetes mellitus, Gastroparesis, Increased anion gap metabolic acidosis, Volume depletion Intractable vomiting Qualifiers: Vomiting type: unspecified Nausea presence: with nausea Qualified Code(s): R11.2 - Nausea with vomiting, unspecified Disposition: DC-09 OP ADMIT IP TO THIS HOSP Is pt being admited?: Yes Condition: Stable Instructions: Diabetes Mellitus Type 2 in Adults (ED) Referrals: PRIMARY CARE, [Primary Care Provider] - 3-5 Days
[2017-07-13 15:42] LABS: Urine Drugs of Abuse Note Disclamer
[2017-07-13 15:54] LABS: Bilirubin,Urine NEG (Negative); Blood,Urine LG (Negative); Ketones,Urine 80 mg/dL (Negative); Leukocyte Esterase,Urine TR (Negative); Nitrite,Urine NEG (Negative); Urobilinogen,Urine < 2.0 mg/dL (<2.0)
[2017-07-13 15:56] LABS: RBC,Urine > 182.0 /HPF (0.0-6.0)
[2017-07-13] MEDS: LIBRAX 5-2.5 MG PO SCH ×2 (16:30→21:32)
[2017-07-13] MEDS: NACL 0.45% 1000 ML 1,000 ML IV SCH (16:32)
--- NOTE | 2017-07-13 17:34 | XRay Report ---
FINAL REPORT PROCEDURE: XR CHEST ROUTINE 2V TECHNIQUE: Two views of the chest are obtained HISTORY: cp COMPARISON: No prior studies are available for comparison. FINDINGS: The heart is normal in size. There is no focal infiltrate, pneumothorax or pleural effusion. IMPRESSION: No abnormalities are seen.
[2017-07-13] MEDS: PEPCID IV SCH (21:32)
[2017-07-13] MEDS: ZOFRAN IV PRN (21:45)
[2017-07-14] MEDS: NACL 0.45% 1000 ML 1,000 ML IV SCH (03:47)
[2017-07-14] MEDS ORDERED: CARAFATE PO SCH (07:30)
[2017-07-14] MEDS: ZOFRAN IV PRN ×2 (08:55→18:17)
[2017-07-14] MEDS: PEPCID IV SCH (10:00)
--- NOTE | 2017-07-14 11:08 | Progress Note ---
Assessment and Plan Assessment and plan: Patient is 26-year-old woman with history of obesity, type 1 insulin-dependent diabetes mellitus, asthma, gastroparesis and esophagitis with EGD on 06/10/17 read as no outlet obstruction from the stomach, minimal retained fluid, LA grade A esophagitis from Vomiting. She was sent home on Protonix. She has not taken her medications in 3 days because of a move. Chest x-ray read as no abnormality seen. Urine drug screen positive for marijuana, blood glucose 218. Patient was admitted 06/10/17 and discharged on 06/14/2017 -Intractable nausea/vomiting due to the acute gastroparesis flare: We discussed Reglan irreversible side effects which she has taken in the past and is okay to take -Worsening of esophagitis due to noncompliance with taking PPI: Counseling done on compliance -Uncontrolled type 1 diabetes mellitus with hyperglycemia: We discussed about compliance, add SSI and ADA diet -Marijuana use: Counseling done -DVT prophylaxis: SCDs History Interval history: Patient was seen and examined. Follow-up on current diagnosis/nausea vomiting which is still present. Overnight uneventful. Patient denies any chest pain, shortness breath, she denies diarrhea but she does have epigastric abdominal pain. Or severe headaches. Imaging, nursing note, chart, labs and old chart reviewed. Discussed with patient. Hospitalist Physical - Physical exam Narrative exam: GEN: WDWN, NAD, AWAKE, ALERT, ORIENTATED 3 HEENT: NCAT, EOMI, PERRL, OP Clear NECK: supple, no adenopathy, no thyromegaly, no JVD CVS/HEART: RRR, NORMAL S1S2, NO JVD, pulses present bilaterally CHEST/LUNGS: CTA B, Symmetrical chest expansion, good air entry bilaterally GI/Abdomen: soft, nondistended, epigastric abdominal pains good bowel sounds, no guarding or rebound /Bladder: no suprapubic tenderness, no CVA or paraspinal tenderness EXT/Skin: no c/c/e, no obvious rash MSK: FROM x 4 Neuro: CN 2-12 grossly intact, no new focal deficits Psych: calm - Constitutional Vitals: Temp Pulse Resp BP Pulse Ox 98.9 F 75 16 138/77 98 07/14/17 07:07 07/14/17 07:07 07/14/17 07:07 07/14/17 07:07 07/14/17 09:40 General appearance: Present: obese. Absent: mild distress Results - Labs CBC & Chem 7: 07/13/17 13:40 07/13/17 13:40 Labs: Laboratory Last Values WBC 11.1 K/mm3 (4.5-11.0) H 07/13/17 13:40 RBC 5.33 M/mm3 (3.65-5.03) H 07/13/17 13:40 Hgb 13.9 gm/dl (10.1-14.3) 07/13/17 13:40 Hct 43.5 % (30.3-42.9) H 07/13/17 13:40 MCV 82 fl (79-97) 07/13/17 13:40 MCH 26 pg (28-32) L 07/13/17 13:40 MCHC 32 % (30-34) 07/13/17 13:40 RDW 14.7 % (13.2-15.2) 07/13/17 13:40 Plt Count 325 K/mm3 (140-440) 07/13/17 13:40 Lymph % (Auto) 14.8 % (13.4-35.0) 07/13/17 13:40 [place] % (Auto) 3.4 % (0.0-7.3) 07/13/17 13:40 Eos % (Auto) 0.1 % (0.0-4.3) 07/13/17 13:40 Baso % (Auto) 0.9 % (0.0-1.8) 07/13/17 13:40 Lymph # 1.6 K/mm3 (1.2-5.4) 07/13/17 13:40 [place] # 0.4 K/mm3 (0.0-0.8) 07/13/17 13:40 Eos # 0.0 K/mm3 (0.0-0.4) 07/13/17 13:40 Baso # 0.1 K/mm3 (0.0-0.1) 07/13/17 13:40 Seg Neutrophils % 80.8 % (40.0-70.0) H 07/13/17 13:40 Seg Neutrophils # 8.9 K/mm3 (1.8-7.7) H 07/13/17 13:40 Sodium 140 mmol/L (137-145) 07/13/17 13:40 Potassium 3.9 mmol/L (3.6-5.0) 07/13/17 13:40 Chloride 97.3 mmol/L (98-107) L 07/13/17 13:40 Carbon Dioxide 23 mmol/L (22-30) 07/13/17 13:40 Anion Gap 24 mmol/L 07/13/17 13:40 BUN 6 mg/dL (7-17) L 07/13/17 13:40 Creatinine 0.6 mg/dL (0.7-1.2) L 07/13/17 13:40 Estimated GFR > 60 ml/min 07/13/17 13:40 BUN/Creatinine Ratio 10 % 07/13/17 13:40 Glucose 317 mg/dL (65-100) H 07/13/17 13:40 POC Glucose 218 (70-105) H 07/14/17 05:13 Calcium 9.1 mg/dL (8.4-10.2) 07/13/17 13:40 Total Bilirubin 0.40 mg/dL (0.1-1.2) 07/13/17 13:40 Direct Bilirubin < 0.2 mg/dL (0-0.2) 07/13/17 13:40 AST 13 units/L (5-40) 07/13/17 13:40 ALT 13 units/L (7-56) 07/13/17 13:40 Alkaline Phosphatase 59 units/L (35-129) 07/13/17 13:40 Total Protein 8.0 g/dL (6.3-8.2) 07/13/17 13:40 Albumin 3.9 g/dL (3.9-5) 07/13/17 13:40 Albumin/Globulin Ratio 1.0 % 07/13/17 13:40 Urine Color Red (Yellow) 07/13/17 15:40 Urine Turbidity Clear (Clear) 07/13/17 15:40 Urine pH 6.0 (5.0-7.0) 07/13/17 15:40 Ur Specific [place] 1.040 (1.003-1.030) H 07/13/17 15:40 Urine Protein 100 mg/dl mg/dL (Negative) 07/13/17 15:40 Urine Glucose (UA) >=500 mg/dL (Negative) 07/13/17 15:40 Urine Ketones 80 mg/dL (Negative) 07/13/17 15:40 Urine Blood Lg (Negative) 07/13/17 15:40 Urine Nitrite Neg (Negative) 07/13/17 15:40 Urine Bilirubin Neg (Negative) 07/13/17 15:40 Urine Urobilinogen < 2.0 mg/dL (<2.0) 07/13/17 15:40 Ur Leukocyte Esterase Tr (Negative) 07/13/17 15:40 Urine WBC (Auto) 5.0 /HPF (0.0-6.0) 07/13/17 15:40 Urine RBC (Auto) > 182.0 /HPF (0.0-6.0) 07/13/17 15:40 U Epithel Cells (Auto) 8.0 /HPF (0-13.0) 07/13/17 15:40 Urine HCG, Qual Negative (Negative) 07/13/17 15:40 Urine Opiates Screen Presumptive negative 07/13/17 15:40 Urine Methadone Screen Presumptive negative 07/13/17 15:40 Ur Barbiturates Screen Presumptive negative 07/13/17 15:40 Ur Phencyclidine Scrn Presumptive negative 07/13/17 15:40 Ur Amphetamines Screen Presumptive negative 07/13/17 15:40 U Benzodiazepines Scrn Presumptive negative 07/13/17 15:40 Urine Cocaine Screen Presumptive negative 07/13/17 15:40 U Marijuana (THC) Screen Presumptive positive 07/13/17 15:40 Drugs of Abuse Note Disclamer 07/13/17 15:40
[2017-07-14] MEDS ORDERED: D50W (25GM) Syringe IV PRN (11:19)
[2017-07-14] MEDS ORDERED: MORPHINE IV PRN ×3 (11:19→17:55)
[2017-07-14] MEDS: REGLAN PO SCH ×3 (11:53→23:26)
[2017-07-14] MEDS: NOVOLOG SUB-Q SCH ×2 (12:00→18:19)
[2017-07-14] MEDS ORDERED: FLAGYL 500 MG/100 ML 500 MG/100 ML BAG IV SCH (14:00)
[2017-07-14] MEDS: PROTONIX IV SCH (14:50)
[2017-07-14] MEDS: LIBRAX 5-2.5 MG PO SCH ×3 (16:30→23:26)
[2017-07-14] MEDS: NORVASC PO SCH (18:16)
[2017-07-14] MEDS: MORPHINE IV PRN (18:17)
--- NOTE | 2017-07-14 18:25 | Gastroenterology Consultation ---
History of Present Illness - Reason for Consult Consult date: 07/14/17 N/V/Gastroparesis Requesting physician: ASMITA BLANCA - History of Present Illness The patient is a 26 yo female with poorly controlled DM who was seen last month for gastroparesis. An EGD was negative for ulcer or outlet obstruction. She was re-admitted with abdominal pain and N/v. She admits to being out of all of her meds for 3 days. She was unable to tolerate any liquids. She has no blood in the emesis or stools. She has no fevers or chills. Her complaints had also been worked up at [facility] recently. Past History Past Medical History: diabetes, other (Gastroparesis, Esophagitis,Asthma, Noncompliance) Past Surgical History: Other (endoscopy) Social history: single. denies: smoking, alcohol abuse, prescription drug abuse Family history: diabetes, hypertension Medications and Allergies Allergies Allergy/AdvReac Type Severity Reaction Status Date / Time Sulfa (Sulfonamide Allergy Swelling Verified 06/09/17 20:42 Antibiotics) sulfamethoxazole Allergy Swelling Verified 06/09/17 20:42 [From Bactrim] trimethoprim [From Bactrim] Allergy Swelling Verified 06/09/17 20:42 Home Medications Medication Instructions Recorded Confirmed Last Taken Type Insulin Lispro [Humalog 100 0 units SQ AC 06/10/17 07/13/17 3 Days Ago History UNITS/ML Kwikpen] Ondansetron [Zofran TAB] 4 mg PO Q8HR PRN #90 tablet 06/14/17 07/13/17 07/03/17 Rx Pantoprazole [Protonix TAB] 40 mg PO QDAY #30 tablet 06/14/17 07/13/17 07/03/17 Rx amLODIPine [Norvasc] 5 mg PO QDAY #30 tablet 06/14/17 07/13/17 07/03/17 Rx chlordiazePOXIDE/CLIDINIUM [Librax 1 cap PO ACHS #120 capsule 06/14/17 07/13/17 07/03/17 Rx 5-2.5 mg] Active Meds: Active Medications Acetaminophen (Tylenol) 650 mg PO Q4H PRN PRN Reason: Pain MILD(1-3)/Fever >100.5/PATEL Last Admin: 07/13/17 21:33 Dose: 650 mg Albuterol (Proventil) 2.5 mg IH Q4HRT PRN PRN Reason: Shortness Of Breath Amlodipine Besylate (Norvasc) 5 mg PO QDAY [facility] Last Admin: 07/14/17 18:16 Dose: 5 mg Chlordiazepoxide/Clidinium (Librax 5-2.5 Mg) 1 cap PO [facility] Last Admin: 07/14/17 17:04 Dose: Not Given Dextrose (D50w (25gm) Syringe) 50 ml IV PRN PRN PRN Reason: Hypoglycemia Insulin Aspart (Novolog) 0 units SUB-Q Q6HR [facility] PRN Reason: Protocol Last Admin: 07/14/17 12:00 Dose: 4 units Metoclopramide HCl (Reglan) 10 mg PO [facility] Last Admin: 07/14/17 17:04 Dose: 10 mg Metoclopramide HCl (Reglan) 10 mg IV Q8H PRN PRN Reason: Nausea And Vomiting Morphine Sulfate (Morphine) 1 mg IV Q6H PRN PRN Reason: Pain , Severe (7-10) Last Admin: 07/14/17 18:17 Dose: 1 mg Ondansetron HCl (Zofran) 4 mg IV Q8H PRN PRN Reason: N/V unrelieved by Reglan Last Admin: 07/14/17 18:17 Dose: 4 mg Pantoprazole Sodium (Protonix) 40 mg IV QDAY [facility] Last Admin: 07/14/17 14:50 Dose: 40 mg Review of Systems - Review of Systems All systems: negative (as noted in the HPI.) Exam - Constitutional Vital Signs: Temp Pulse Resp BP Pulse Ox 98.2 F 77 16 173/97 98 07/14/17 15:06 07/14/17 15:06 07/14/17 15:06 07/14/17 15:06 07/14/17 15:06 General appearance: mild distress - EENT Eyes: PERRL, EOM intact ENT: hearing intact, clear oral mucosa, dentition normal, no thrush - Neck Neck: supple, normal ROM - Respiratory Respiratory effort: normal Respiratory: bilateral: CTA - Cardiovascular Rhythm: regular Heart Sounds: Present: S1 & S2 Extremities: no ischemia, No edema - Gastrointestinal General gastrointestinal: Present: soft, non-tender, non-distended - Integumentary Integumentary: Present: clear, warm, dry - Neurologic Neurological: alert and oriented x3 - Labs CBC & Chem 7: 07/13/17 13:40 07/13/17 13:40 Lab Results: Laboratory Results - last 24 hr 07/13/17 07/13/17 07/14/17 16:38 21:25 05:13 POC Glucose 279 H 238 H 218 H 07/14/17 07/14/17 11:50 16:40 POC Glucose 251 H 233 H Assessment and Plan - Patient Problems (1) Gastroparesis Current Visit: Yes Status: Acute Plan to address problem: - Dx by [facility] last month (and EGD negative). - Will check lipase level, and get CT scan if elevated. - Exacerbated by noncompliance with medication. - Will place on full liquid diet, with reglan, protonix, librax. - Will start taper of narcotics.
[2017-07-14] MEDS: REGLAN IV PRN (21:48)
[2017-07-15] MEDS: MORPHINE IV PRN (00:11)
[2017-07-15] MEDS: NOVOLOG SUB-Q SCH ×3 (00:12→12:30)
[2017-07-15] MEDS: ZOFRAN IV PRN ×3 (04:24→15:58)
[2017-07-15] MEDS: REGLAN PO SCH ×2 (07:59→11:13)
[2017-07-15] MEDS: LIBRAX 5-2.5 MG PO SCH ×2 (08:00→11:13)
[2017-07-15] MEDS: NORVASC PO SCH (09:27)
[2017-07-15] MEDS: PROTONIX IV SCH (09:27)
--- NOTE | 2017-07-15 10:09 | Gastroenterology Progress Note ---
Assessment and Plan 1.gastroparesis -afebrile -lipase 13-WNL -pt reports N/V x 2 episodes this am -Dx by [facility] last month (EGD negative) -discussed need for compliance of medications with pt and need for small frequent meals -recommend limiting narcotics for this may exacerbate symptoms -continue supportive care -pt okay to be d/c per GI standpoint once tolerating PO intake with f/u in clinic in 2-3 weeks -will sign off, please re-consult if needed Subjective Date of service: 07/15/17 Principal diagnosis: gastroparesis Interval history: Patient resting in bed. No acute distressed. Reports N/V x 2 episodes this am. No abd pain. Objective - Constitutional Vitals: Temp Pulse Resp BP Pulse Ox 98.9 F 77 16 140/66 96 07/15/17 07:41 07/15/17 07:41 07/15/17 07:41 07/15/17 07:41 07/15/17 09:00 General appearance: no acute distress, obese - EENT Eyes: PERRL, EOM intact ENT: hearing intact - Respiratory Respiratory: bilateral: CTA - Cardiovascular Rhythm: regular Heart Sounds: Present: S1 & S2 - Extremities Extremities: No edema - Gastrointestinal General gastrointestinal: Present: soft, non-tender, non-distended, normal bowel sounds - Integumentary Integumentary: Present: warm, dry - Neurologic Neurological: alert and oriented x3 - Labs CBC & Chem 7: 07/13/17 13:40 07/13/17 13:40 Labs: Laboratory Results - last 24 hr 07/13/17 07/14/17 07/14/17 16:38 11:50 16:40 POC Glucose 279 H 251 H 233 H Lipase 07/14/17 07/15/17 07/15/17 21:38 04:14 06:10 POC Glucose 181 H 215 H Lipase 13
--- NOTE | 2017-07-15 10:21 | Discharge Summary ---
Providers - Providers Date of Admission: 07/13/17 14:51 Attending physician: NOEMY SONG MD 07/14/17 11:16 Consult to Physician [CONS] Routine Consulting Provider: MARIE CARBALLO Reason For Exam: worsening esophagitis Place consult to:: DR. CARBALLO Notified:: OFFICE Phone number called:: [phone] Was contact made?: Yes If yes, spoke with:: CORLESS Time called:: 11:24 Comment:: WILLIAM NOTIFIED Primary care physician: ONION TOPPER Hospitalization Condition: Stable Hospital course: Patient is 26-year-old woman with history of obesity, type 1 insulin-dependent diabetes mellitus, asthma, gastroparesis and esophagitis with EGD on 06/10/17 read as no outlet obstruction from the stomach, minimal retained fluid, LA grade A esophagitis from Vomiting. She was sent home on Protonix. She has not taken her medications in 3 days because of a move. Chest x-ray read as no abnormality seen. Urine drug screen positive for marijuana, blood glucose 218. Patient was admitted 06/10/17 and discharged on 06/14/2017 -Intractable nausea/vomiting due to the acute gastroparesis flare: We discussed Reglan irreversible side effects which she has taken in the past and is okay to take -Worsening of esophagitis due to noncompliance with taking PPI: Counseling done on compliance -Uncontrolled type 1 diabetes mellitus with hyperglycemia: We discussed about compliance, add SSI and ADA diet -Marijuana use: Counseling done -DVT prophylaxis: SCDs Disposition: DC-01 TO HOME OR SELFCARE Time spent for discharge: 35 mins Exam - Constitutional Vitals: Temp Pulse Resp BP Pulse Ox 98.9 F 77 16 140/66 96 07/15/17 07:41 07/15/17 07:41 07/15/17 07:41 07/15/17 07:41 07/15/17 09:00 Plan Activity: advance as tolerated, fall precautions Diet: advance as tolerated, other (FUll liquids) Follow up with: KEYSHA LOTT MD [Primary Care Provider] - 3-5 Days MARIE CARBALLO MD [Staff Physician] - 7 Days Prescriptions: amLODIPine [Norvasc] 5 mg PO QDAY #30 tablet chlordiazePOXIDE/CLIDINIUM [Librax 5-2.5 mg] 1 cap PO ACHS #120 capsule Insulin Lispro [Humalog 100 UNITS/ML Kwikpen] 5 units SQ AC 30 Days Metoclopramide [Reglan ORAL LIQ] 10 mg PO ACHS 30 Days Ondansetron [Zofran TAB] 4 mg PO Q8HR PRN #90 tablet PRN Reason: Nausea Pantoprazole [Protonix TAB] 40 mg PO QDAY #30 tablet
[2017-07-15] MEDS: REGLAN IV PRN (11:13)
[2017-07-15 15:47] VITALS: BP 157/105
== END 2017-07-15 16:15 | disposition home or self-care (01) | DRG 74 ==
LOC: ED 13:26 → 3A 14:51
PROVIDERS: ADMIT Internal Medicine; ATTEND Internal Medicine
DX: E10.43 Type 1 diabetes mellitus with diabetic autonomic (poly)neuropathy (principal); Z68.41 Body mass index [BMI] 40.0-44.9, adult; K31.84 Gastroparesis; E66.9 Obesity, unspecified; J45.909 Unspecified asthma, uncomplicated; I10 Essential (primary) hypertension; E10.65 Type 1 diabetes mellitus with hyperglycemia; K20.9 Esophagitis, unspecified; Z88.2 Allergy status to sulfonamides; Z88.8 Allergy status to other drugs, medicaments and biological substances; Z83.3 Family history of diabetes mellitus; Z82.49 Family history of ischemic heart disease and other diseases of the circulatory system; Z79.4 Long term (current) use of insulin; Z79.899 Other long term (current) drug therapy
CPT/HCPCS: 36415; 71020; 80048; 80074; 80307; 81001; 81025; 82962; 83690; 85025; 96361; 96374; 96375; 99406; C9113; J1815; J2270; J2405; J2765; J2920; J7030

== ENCOUNTER 2017-10-13 11:55 | Emergency (ER) | payer OTHER | END 2017-10-13 12:10 | disposition left against medical advice (07) | LOC: ED 11:55 | DX: M79.602 Pain in left arm (principal); Z53.21 Procedure and treatment not carried out due to patient leaving prior to being seen by health care provider ==